=== PATIENT | male | born 1965 | race Caucasian/White ===

== ENCOUNTER 2019-06-24 09:51 | Outpatient (RCR) | payer OTHER, SELFPAY ==
--- NOTE | 2019-06-24 11:27 | OTOPEVAL ---
Thank you for referring this patient to [facility]. Please review, sign, date and return this plan of care LANCE. I agree with and certify that the following plan of care is medically necessary. Referring Physician Date Admitting Provider: Attending Provider: Scooter Long MD Referring Provider: *OT Outpatient Evaluation Start: 06/24/19 09:58 Freq: Status: Active Protocol: Document 06/24/19 09:58 [facility] (Rec: 06/24/19 11:27 [facility] [id number]) Therapy Assessment Status Assessment Status Assessment Status Evaluation Evaluation Information Problem Diagnosis L hand pain, L hand weakness Onset 04/08/20 Cause 4th metacarpal fracture, Dupuytrens Subjective Information Patient reports that he fell Query Text:As Reported By Patient/ on the ice back in March Family and fractured his 4th metacarpal. 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 He also reports pain with L wrist ROM. Patient reports that the fracture has healed but he is struggling to use his left hand for any heavy lifting. He also reports a new diagnosis of Dupuytren's. Heavy lifting is required for his job. Diagnostic Tests X-Rays For This Problem Yes Previous Treatments Previous Treatments For This Problem None Prior Level of Function Activity Level (Last 3 Months) Hand Dominance Right Activity of Daily Living Ability Independent Indoor/Home Mobility Independent Community Mobility Independent Stairs Ability Independent Functional Cognition (Planning, Shopping Independent , Taking Medications) Cooking Yes Cleaning Yes Laundry Yes Shopping Yes Driving Yes Medications Home Meds (Include: OTC, RX, Vitamins, Advil PRN for pain Herbals, Dose, Route,and Frequency) Query Text:Home Med Entries Will No Longer Recall From Past Visits. Home Meds Must Be Re-entered With Each Visit. Home Setting Home Type House Living Situation With Spouse Mobility Assistive Devices (Used Last 3 None Months)
--- NOTE | 2019-07-25 08:08 | OTOPEVAL ---
Thank you for referring this patient to [facility]. Please review, sign, date and return this plan of care LANCE. I agree with and certify that the following plan of care is medically necessary. Referring Physician Date Admitting Provider: Attending Provider: Scooter Long MD Referring Provider: *OT Outpatient Evaluation Start: 06/24/19 09:58 Freq: Status: Active Protocol: Document 07/25/19 07:00 [facility] (Rec: 07/25/19 08:08 [facility] [id number]) Therapy Assessment Status Assessment Status Assessment Status Re-evaluation Pain Assessment Timing of Pain Assessment Timing of Pain Assessment Assessment Pain Scale Pain Scale Used Numeric (1 - 10) Self Report Pain Assessment Left Hand(s) Reported Pain Level 0 Additional Pain Comments 2/10 with movement, 4/10 with movement prior to stretches Pain Score Pain Score 0: Self Report Upper Extremity Range of Motion Wrist Range of Motion Left Wrist Flexion - Active 70 Wrist Extension - Active 65 Finger Range of Motion Left Ring Finger PIP Joint Flexion - Active 90 Ring Finger DIP Joint Flexion - Active 60 Little Finger PIP Joint Flexion - Active 90 Little Finger DIP Joint Flexion - Active 45 Hand Drupal Web Developer/Pinch Strength Assessment Hand Left Drupal Web Developer Strength (lbs) 33 OT Clinical Summary Clinical Summary Protocol: OTEVCODES Clinical Summary Patient is a 53 year old male who presents post 4th metacarpal fracture and Dupuytrens with primary concerns regarding pain and decreased wrapper hand strength. Patient has been seen for 12 OT visists and presents with decreased L wrist and hand pain as well as increased ROM and increased wrapper hand strength since initial evaluation. Feel that patient would continue to benefit from skilled OT services in order to further progress wrapper hand strength as it continues to be significantly weak and impacting his ability to perform job duties. Treatment Frequency and Duration 2x/week for 6 additional visits OT Procedures OT Minutes Total Minutes Of Individual OT This 55 Session (Minutes) Query Text:The Provision Of OT Services By One Licensed OT (Or Licensed ANDREW, Under The
== END 2019-08-14 08:57 | disposition home or self-care (01) ==
LOC: CHSOT 09:51
PROVIDERS: PCP Internal Medicine; Visit Provider Orthopaedic Surgery
DX: S62.305A Unspecified fracture of fourth metacarpal bone, left hand, initial encounter for closed fracture (principal)
CPT/HCPCS: 97014; 97035; 97110; 97140; 97165; G0283

== ENCOUNTER 2020-06-02 11:37 | Outpatient (CLI) | payer OTHER, SELFPAY ==
[2020-06-02 12:30] LABS: SARS-CoV-2 Ag Negative (Negative)
== END 2020-06-02 11:38 | disposition home or self-care (01) ==
LOC: CHSLAB 11:44
PROVIDERS: PCP Internal Medicine; Visit Provider Internal Medicine
DX: Z20.822 Contact with and (suspected) exposure to COVID-19 (principal)
CPT/HCPCS: 87426; C9803

== ENCOUNTER 2021-01-16 21:23 | Observation (INO) | payer OTHER, SELFPAY ==
[2021-01-16] VITALS (12 sets, daily range): BP systolic 136–154; BP diastolic 95–101; PULSE 100–113; RESP 13–25; TEMP 37.4; O2SAT 95–99
--- NOTE | ~2021-01-16 | XR_ITS ---
EXAMINATION: XR chest 1V portable EXAM DATE: 01/18/2021 14:06 INDICATION: COVID infection . TECHNIQUE: Portable AP frontal chest x-ray was obtained. There is no prior study for comparison. FINDINGS: Small amount of ill-defined left basilar airspace disease. The lungs are otherwise clear. T he cardiomediastinal silhouette is prominent but magnified on this AP technique. There is no pneumoth orax suspected. There are no pleural effusions. There are no osseous abnormalities identified. IMPRESSION: Small amount of ill-defined left basilar airspace disease. Could be developing COVID pneu monia. Reviewed, dictated and finalized at location A. IMPRESSION: Small amount of ill-defined left basilar airspace disease. Could be developing COVID pneumonia.
--- NOTE | ~2021-01-16 | CT_ITS ---
EXAMINATION: CT abdomen pelvis w con DATE: 01/16/2021 22:47 INDICATION: Generalized abdominal pain. TECHNIQUE: Computed tomography (CT) of the abdomen and pelvis was performed with 100 mL Omnipaque-350 intravenous contrast. Automated exposure control and iterative reconstruction technique were employe d. The dose-length product was 600.12 mGy-cm. COMPARISON: None FINDINGS: Respiratory motion and minimal atelectasis at the lung bases. A few small calcified nodules in the li ngula consistent with old granulomatous disease. Heart size is normal. No pericardial or pleural effu radha. Liver, gallbladder, spleen, pancreas, bilateral adrenal glands and kidneys are normal. There is inflammatory stranding and trace amount of fluid along the mesentery of the right lower quadrant inc luding along the appendix which measures up to 11 mm in diameter as well as more prominently along th e terminal ileum which also demonstrates some mild wall thickening. There is some gas and fluid scatt ered throughout nondilated small bowel which could indicate an associated ileus. Diffuse bladder wall thickening which could be due to cystitis either acute or chronic or chronic outlet obstruction from the enlarged prostate which measures up to 5.2 x 4.5 cm in maximal transaxial dimensions. No abscess or free intraperitoneal gas. No pathologically enlarged abdominal or pelvic lymphadenopathy. Mild to moderate thoracolumbar spondylosis. IMPRESSION: 1. Inflammatory stranding along the appendix and surrounding the terminal ileum. Differential include s acute appendicitis and terminal ileitis which could be infectious in etiology or related to Crohn's disease. Given the pattern of the inflammatory stranding would favor terminal ileitis. 2. Diffuse bladder wall thickening to at least in part to incomplete distention with differential inc luding cystitis either acute or chronic or response to chronic outlet obstruction from the enlarged p rostate. Reviewed, dictated and finalized at location B. IMPRESSION: 1. Inflammatory stranding along the appendix and surrounding the terminal ileum . Differential includes acute appendicitis and terminal ileitis which could be infectious in etiology or related to Crohn's disease. Given the pattern of the inflammatory stranding would favor terminal ileitis. 2. Diffuse bladder wall thickening to at least in part to incomplete distention with differential including cystitis either acute or chronic or response to ch ronic outlet obstruction from the enlarged prostate.
--- NOTE | 2021-01-16 21:55 | ED.ABDPAIN ---
HPI - Abdominal Pain General Chief Complaint: Abdominal Pain Stated Complaint: COVID AND ABD PAIN Time Seen by Provider: 01/16/21 21:55 History of Present Illness HPI narrative: 55 yo male presents to the ED for abdominal pain. He was diagnosed with COVID-19 2 days. Yesterday he began having diffuse abdominal pain. The pain is made worse by anything that requires him to use his abdominal muscles. The pain is only mild at rest. No nausea, vomiting, diarrhea, dysuria, hematuria. Related Data Allergies Allergy/AdvReac Type Severity Reaction Status Date / Time No Known Allergies Allergy Verified 01/16/21 21:54 Review of Systems Review of Systems: All systems reviewed & are unremarkable except as noted in HPI and below Constitutional: Constitutional: Reports fatigue Cardiovascular: Cardiovascular: Denies chest pain Respiratory: Respiratory: Denies dyspnea Genitourinary: Genitourinary: Denies hematuria, Denies dysuria and Denies urinary frequency Musculoskeletal: Musculoskeletal: Reports myalgias Neurologic: Denies dizziness and Denies weakness PMFSH Past Medical History Medical History (Updated 01/17/21 @ 00:13 by Omar Maddox MD) Degenerative arthritis of right knee Dupuytren's contracture of both hands Surgical History Surgical History H/O knee surgery Metacarpal bone fracture (04/08/19) Social History Social History Smoking status: Former smoker Smoking end date: 05/28/84 Alcohol intake: current Substance use: unknown Gender identity (if verbalized by the patient): Male Spiritual care concerns: No Exam Const: General: healthy appearing, no acute distress and alert Orientation/consciousness: patient oriented x3 HENMT: Head: normal to inspection Neck: Neck: normal visual inspection Resp: Effort & Inspection: normal respiratory effort Auscultation: clear to auscultation bilaterally, no rales, no rhonchi and no wheezes Cardio: Jugular venous distension: no JVD Rate: regular rate Rhythm: regular rhythm Heart sounds: no murmurs GI: Inspection: non-distended GI Palp: Yes Soft to palpation and Yes Tenderness to palpation present (GI) (diffuse ) Skin: General skin exam: normal color Neuro: General: patient oriented x3 and moves all extremities Speech: normal speech Extrem: General: no edema Psych: Appearance: well kempt Affect: normal affect Course Vital Signs Vital signs: Vital Signs Temperature 37.4 C 01/16/21 21:45 Pulse Rate 113 H 01/16/21 21:45 Respiratory Rate 18 01/16/21 21:45 Blood Pressure 136/95 H 01/16/21 21:45 Pulse Oximetry 96 01/16/21 21:45 Temperature 37.4 C 01/16/21 21:45 Pulse Rate 113 H 01/16/21 21:45 Respiratory Rate 18 01/16/21 21:45 Blood Pressure 136/95 H 01/16/21 21:45 Pulse Oximetry 99 01/16/21 22:19 MDM - Abdominal Pain MDM Narrative Medical decision making narrative: Pain seems like is most likely in the abdominal wall. I will get a CT to rule out more serious pathology. CT shows possible ileitis versus appendicitis Dr. Oneal will consult Will admit to dr. Rushing Differential Diagnosis Differential diagnosis: Likely acute appendicitis, diverticulitis, pancreatitis and small bowel obstruction Medical Records Attestation: I reviewed the patient's medical records. Lab Data Attestation: I reviewed the patient's lab results. Result diagrams: 01/16/21 22:22 01/16/21 22:39 Labs: Lab Results 01/16/21 01/16/21 01/16/21 Range/Units 22:22 22:22 22:22 WBC 9.4 (4.5-10.0) K/mm3 RBC 5.32 (4.6-6.20) M/mm3 Hgb 15.8 (14.0-18.0) g/dL Hct 47.2 (42.0-52.0) % MCV 88.7 (80-100) fl MCH 29.7 (26-34) pg MCHC 33.5 (32-36) g/dl RDW 13.4 (11.5-14.5) % Plt Count 202 (150-375) k/mm3 MPV 9.0 (7.4-10.4) fl Immature Gran % (Auto)
[2021-01-16 22:42] LABS: Estimated CRCL calculation 75 ml/min; Estimated Glomerular Filt Rate > 60
[2021-01-16 22:54] LABS: Basophils Percent Auto 0.1 % (0.2-1.2); Hematocrit 47.2 % (42.0-52.0); Hemoglobin 15.8 g/dL (14.0-18.0); Immature Granulocyte Absolute 0.02 K/mm3 (0.00-0.031); Immature Granulocyte Percent A 0.2 % (0-0.5); Lymphocytes Absolute Auto 0.69 K/mm3 (0.9-3.2); Lymphocytes Percent Auto 7.3 % (18.3-44.2); Mean Corpuscular HGB Conc 33.5 g/dl (32-36); Mean Corpuscular Hemoglobin 29.7 pg (26-34); Mean Corpuscular Volume 88.7 fl (80-100); Monocytes Absolute Auto 0.5 K/mm3 (0.1-0.6); Monocytes Percent Auto 5.7 % (2.6-8.5); Neutrophils Absolute Auto 8.2 K/mm3 (1.3-6.7); Neutrophils Percent Auto 86.7 % (45.5-73.1); Platelet Count Result 202 k/mm3 (150-375); Red Blood Count 5.32 M/mm3 (4.6-6.20); Red Cell Distribution Width 13.4 % (11.5-14.5); White Blood Count 9.4 K/mm3 (4.5-10.0)
[2021-01-16 23:18] LABS: Add Urine Microscopic? YES; Appearance Urine Clear (Clear); Bacteria Urine Trace /hpf; Bilirubin Urine Negative (Negative); Blood Urine 2+ (Negative); Color Urine Amber (Yellow); Glucose Urine UA Negative (Negative); Ketones Urine 1+ mg/dL (Negative); Leukocyte Esterase Ur Negative LEU/UL (Negative); Mucus Urine Few /lpf; Nitrate Urine Negative (Negative); Protein Urine 2+ mg/dL (Negative); RBC Urine 0-2 /hpf (0-2); Squamous Epithelial Cell Urine Rare /hpf (Few); WBC Urine 0-3 /hpf
[2021-01-16 23:23] LABS: Alanine Aminotransferase 31 U/L (4-50); Albumin Level 3.9 g/dL (3.5-5.1); Alkaline Phosphatase 64 U/L (38-126); Anion Gap 9 mmol/L (8-16); Aspartate Amino Transferase 42 U/L (17-59); Bilirubin,Total 0.6 mg/dL (0.2-1.3); Blood Urea Nitrogen 23 mg/dL (9-20); Calcium 8.4 mg/dL (8.4-10.2); Carbon Dioxide 23 mmol/L (22-30); Chloride 98 mmol/L (98-107); Estimated CRCL calculation 82 ml/min; Estimated Glomerular Filt Rate > 60; Glucose 98 mg/dL (65-110); Lipase 46 U/L (23-300); Sodium 130 mmol/L (137-145)
[2021-01-17] VITALS (12 sets, daily range): BP systolic 116–151; BP diastolic 63–92; PULSE 91–106; RESP 16–23; TEMP 36.8–37.4; O2SAT 93–100; BMI 24.1
[2021-01-17] MEDS: MORPHINE SULFATE (*CRX) 4 MG/ML INJ IV PUSH (00:31)
--- NOTE | 2021-01-17 02:27 | PC.NURSE ---
This patient, Anish Joseph, was admitted to 3 Med Surg Room 309-01 @02:20. Report taken from Sina in ED. Patient/family oriented to hospital policies and general routines including ID bracelet, bed and alarms, visiting hours, pain management, procedures, bathroom and other care routines, personal items, smoking policy, room service/diet, and visiting hours. Information on how to activate the Rapid Response Team has been discussed. Patient/Family are encouraged to report perceived risks to care and to ask questions if they do not understand what they are told or what they should do.
--- NOTE | 2021-01-17 03:14 | PM.IMHP ---
H&P: HPI History of Present Illness Date/Time: 01/17/21 03:14 Chief Complaint: Abdominal pain Narrative: This is a 55-year-old male with past medical history significant for DJD, Dupuytren's contracture. Patient tested positive for COVID 19 2 days ago he presented to the emergency room due to abdominal pain diffusely localized he rates it at 10/10 intensity it is likely squeeze has not been able to eat has had some chills and subjective fever had roughly 6 small bowel movements prior to coming to the emergency room but no phlegm or mucus or blood. He denies any change in stool character no hematemesis no hematochezia no melena no weight loss although has had roughly a 9 lb weight loss due to not been able to eat in the last few days or so due to abdominal pain. States that his on the lives in his basement had tested positive for COVID and he decided to go get himself tested due to his daughter going to [place] to start college, however he denies any shortness of breath cough sputum production. He has been in his usual state of health up until this he goes to the gym and keeps a very active life. Preliminary workup was significant for area of enterocolitis seen on CT of abdomen and pelvis rest of chemistry and CBC were pretty much unremarkable. Review of Systems Review of Systems: Abdominal pain passing a small amount of stool several times a day Constitutional: Constitutional: Reports chills, Reports fever(s) and Reports malaise Eyes: Eyes: Denies change in vision ENT: Denies dysphagia, Denies nasal congestion, Denies nasal discharge, Denies nasal obstruction and Denies odynophagia Cardiovascular: Cardiovascular: Denies chest pain, Denies claudication, Denies lightheadedness, Denies radiating jaw, neck or arm pain, Denies palpitations and Denies dyspnea on exertion Respiratory: Respiratory: Denies cough and Denies dyspnea Gastrointestinal: Gastrointestinal: Reports abdominal pain (Diffusely localized), Denies melena, Denies hematochezia, Denies change in stool character, Reports GI cramping, Denies diarrhea, Denies nausea and Denies vomiting Genitourinary: Genitourinary: Reports no additional male genitourinary complaints Musculoskeletal: Musculoskeletal: Reports no additional musculoskeletal complaints Integumentary/Breasts: Skin/Breast: Reports system reviewed and no additional complaints, except as docu Neurologic: Reports system reviewed and no additional complaints, except as documented Psychiatric: Psychiatric: Reports no additional psychiatric complaints Endocrine: Endocrine: Reports no additional endocrine complaints Hematologic/Lymphatic: Hematologic/Lymphatic: Reports no additional hematologic/lymphatic complaints Allergic/Immunologic: Allergic/Immunologic: Reports no additional allergic/immunologic complaints [facility] Past Medical History Medical History (Updated 01/17/21 @ 03:42 by Alex Jones MD) Degenerative arthritis of right knee Dupuytren's contracture of both hands Surgical History Surgical History H/O knee surgery Metacarpal bone fracture (04/08/19) Social History Social History Smoking status: Former smoker Smoking end date: 05/28/84 Alcohol intake: never Substance use: never Gender identity (if verbalized by the patient): Male Spiritual care concerns: No Meds Home Medications and Allergies Home Medications Medication Instructions Recorded Confirmed Type No Home Medications 01/17/21 01/17/21 History Allergies Allergy/AdvReac Type Severity Reaction Status Date / Time No Known Allergies Allergy Verified 01/17/21 03:01 Vital Signs Vital Signs - 24 hr 01/16/21 21:45 01/16/21 22:13 01/16/21 22:17 Temperature 99.3 F Pulse Rate 113 H 103 H 100 Respiratory Rate 18 18 17 Blood Pressure 136/95 H Pulse Oximetry 96 98 98 01/16/21 22:19 01/16/21
[2021-01-17] MEDS: SODIUM CHLORIDE 0.9% IV 1,000 ML 125 ML IV CONT ×2 (03:51→10:33)
--- NOTE | 2021-01-17 07:36 | ECG_ITS ---
Measurements Intervals Allons Rate: 98 P: 52 VT: 153 QRS: -32 QRSD: 102 T: 55 QT: 345 QTc: 442 Interpretive Statements SINUS RHYTHM DELAYED PRECORDIAL R/S TRANSITION INFERIOR INFARCT, AGE INDETERMINATE ABNORMAL ECG Electronically Signed On 01-17-2021 10:26:18 CDT by Rich Onofre D.O.
[2021-01-17 08:33] LABS: Anion Gap 9 mmol/L (8-16); Blood Urea Nitrogen 19 mg/dL (9-20); Carbon Dioxide 25 mmol/L (22-30); Chloride 95 mmol/L (98-107); Estimated CRCL calculation 69 ml/min; Estimated Glomerular Filt Rate > 60; Glucose 102 mg/dL (65-110); Potassium 3.8 mmol/L (3.4-5.0); Sodium 129 mmol/L (137-145)
--- NOTE | 2021-01-17 14:44 | PM.IMPN ---
Progress Note: A&P Assessment and Plan (1) Terminal ileitis: Code(s): K50.00 - Crohn's disease of small intestine without complications Status: Acute Assessment and Plan: Ileitis vs appendicitis -Pts pain has improved but not resolved. He is eager to eat -No n/v/d associated with this -Pt was started on zosyn, continue with that. Consider viral source as well -last colonoscopy was 5 years ago and was normal -Will start clear liquids -Await sx recommendations. Appendicitis is on the ddx and would appreciate their recommendations (2) COVID-19: Code(s): U07.1 - COVID-19 Status: Acute Assessment and Plan: Fairly asymptomatic -No VERMA, SOB or significant cough -pt unvaccinated -if he develops symptoms, would recommend CXR -no o2 requirements, no indication for decadron or remdesivir -discussed with the patient that he would benefit from a COVID vaccine 3 months after infection (3) Degenerative arthritis of right knee: Qualifiers: Osteoarthritis type: primary Qualified Code(s): M17.11 - Unilateral primary osteoarthritis, right knee Code(s): M17.11 - Unilateral primary osteoarthritis, right knee Status: Acute Assessment and Plan: Unchanged (4) Enlarged prostate: Code(s): N40.0 - Benign prostatic hyperplasia without lower urinary tract symptoms Status: Acute Assessment and Plan: Noted on CT -No sings of infx on UA -No hx of symptoms of outlet obstruction -never had PSA, I will one tomorrow -Follow up with urology (5) EKG abnormality: Code(s): R94.31 - Abnormal electrocardiogram [ECG] [EKG] Status: Acute Assessment and Plan: Subtle signs of possible old inferior infarct -Pt has no cardiac hx or CP/VERMA -would recommend outpt stress test with pcp. He agreed (6) Hyponatremia: Code(s): E87.1 - Hypo-osmolality and hyponatremia Status: Acute Assessment and Plan: Last Na was 129 -no hx of hyponatremia, no old labs -stop fluids -monitor with daily labs Time Spent With Patient Time with patient: 25 - 35 minutes Subjective Date/time seen: 01/17/21 14:44 Interval history: Pt is a 55-year-old male here for abdominal pain. Patient states he continues to have abdominal pain and cramping that is diffuse but also more significant in the right quadrant. He says even sitting up hurts. He has not had any diarrhea, nausea or vomiting associated with it. He says it feels like a twisting/ tightening/ knoting feeling that he has never had before. His last colonscopy was about 5 years ago and was normal. No hx of prostate issues, problems urinating, frequency, or hesitancy that he has noticed. He has never had a PSA. As for his covid, he has no respiratory issues. His main complaint is his decreased appetite. No cardiac hx and no CP. he is very active and has never had issues with CP. Review of Systems Review of Systems: All systems reviewed & are unremarkable except as noted in HPI and below Exam Narrative: General: Well developed well nourished patient in NAD HEENT: normocephalic Neck: supple Neuro: Alert and oriented x4 CV:RRR. EKG reviewed Resp:CTA Abd: Soft, non distended. Pain to palpation in the RLQ. Positive bowel sounds Extremities: No swelling, erythema, or pain to palpation. Objective Data Vital Signs Vital Signs: Vital Signs - 24 hr 01/16/21 21:45 01/16/21 22:13 01/16/21 22:17 Temperature 99.3 F Pulse Rate 113 H 103 H 100 Respiratory Rate 18 18 17 Blood Pressure 136/95 H Pulse Oximetry 96 98 98 01/16/21 22:19 01/16/21 22:47 01/16/21 22:49 Temperature Pulse Rate 105 H Respiratory Rate 17 Blood Pressure 150/101 H Pulse Oximetry 99 98 99 01/16/21 23:00 01/16/21 23:01 01/16/21 23:21 Temperature Pulse Rate 103 H 105 H 106 H Respiratory Rate 25 H 25 H 13 Blood Pressure 149/96 H Pulse Oximetry 95 97 97 01/16/21 23:30 12/27
--- NOTE | 2021-01-17 16:54 | WPDGICN ---
Assessment and Plan Assessment and plan (1) RLQ abdominal pain: Code(s): R10.31 - Right lower quadrant pain Status: Acute Assessment and Plan: I think that this could be related to COVID (reported cased of GI involvement), he denies any sort of GI issues prior this diagnosis continue with supportive care, abx and pain control monitor daily, surgery also on the case unlikely crohn's probably we can do a colonoscopy as outpatient in 2-3 months (2) Terminal ileitis: Code(s): K50.00 - Crohn's disease of small intestine without complications Status: Acute Assessment and Plan: will check also inflammatory markers, also ferritin (3) Hyponatremia: Code(s): E87.1 - Hypo-osmolality and hyponatremia Status: Acute (4) Enlarged prostate: Code(s): N40.0 - Benign prostatic hyperplasia without lower urinary tract symptoms Status: Acute (5) COVID-19: Code(s): U07.1 - COVID-19 Status: Acute Assessment and Plan: no respiratory symptoms some lack of taste patient did not get vaccine GI Consult Note Consult date/time: 01/17/21 16:54 Reason for consult: rlq pain, ileitis HPI: Anish Joseph is a 55 year old male who is quite healthy and active, not taking meds in regular basis who tested positive for COVID 19 about 3 days ago (his son was positive Sunday). He denies any respiratory symptoms or cough but developed new onset of severe pain in lower abdominal 2 days ago but mostly rlq pain, also decrease appetite and very tender, having difficulty even to get in his truck (he did not get COVID vaccine). He denies any change in stool, no blood. He had screening colonoscopy 5 years ago that was normal. CT scan reviewed, inflammatory stranding along the appendix and surrounding the terminal ileum. Differential includes acute appendicitis and terminal ileitis which could be infectious in etiology. Given the pattern of the inflammatory stranding would favor terminal ileitis. Patient says that prior of being diagnosed with COVID infection he was quite normal and did not have GI issues. Review of Systems Constitutional: Constitutional: Denies chills Eyes: Eyes: Denies blurry vision ENT: Reports Normal hearing present Cardiovascular: Cardiovascular: Denies chest pain Respiratory: Respiratory: Denies dyspnea Gastrointestinal: Gastrointestinal: Reports abdominal pain Genitourinary: Genitourinary: Denies urinary incontinence Musculoskeletal: Musculoskeletal: Denies neck pain Integumentary/Breasts: Skin/Breast: Denies dry skin Neurologic: Denies headache(s) Psychiatric: Psychiatric: Denies behavioral changes [facility] Past Medical History Medical History (Updated 01/17/21 @ 17:00 by Jesus Shoemaker MD) Degenerative arthritis of right knee RLQ abdominal pain Surgical History Surgical History H/O knee surgery Metacarpal bone fracture (04/08/19) Social History Social History Smoking status: Former smoker Smoking end date: 05/28/84 Alcohol intake: never Substance use: never Gender identity (if verbalized by the patient): Male Spiritual care concerns: No Meds Home Medications and Allergies Home Medications Medication Instructions Recorded Confirmed Type No Home Medications 01/17/21 01/17/21 History Allergies Allergy/AdvReac Type Severity Reaction Status Date / Time No Known Allergies Allergy Verified 01/17/21 03:01 Vital Signs Vital Signs - 24 hr 01/16/21 21:45 01/16/21 22:13 01/16/21 22:17 Temperature 99.3 F Pulse Rate 113 H 103 H 100 Respiratory Rate 18 18 17 Blood Pressure 136/95 H Pulse Oximetry 96 98 98 01/16/21 22:19 01/16/21 22:47 01/16/21 22:49 Temperature Pulse Rate 105 H Respiratory Rate 17 Blood Pressure 150/101 H Pulse Oximetry 99 98 99 01/16/21 23:
--- NOTE | 2021-01-17 17:36 | PM.CNGS ---
Assessment and Plan Assessment and plan (1) RLQ abdominal pain: Code(s): R10.31 - Right lower quadrant pain Status: Acute Assessment and Plan: Patient is certainly tender in the right lower quadrant. Symptoms do seem to be improving. He is on Zosyn. The CT pattern is much more suggestive of ileitis then appendicitis. The appendix does not seem to be the focus of the inflammatory process. However, should it be appendicitis, antibiotic therapy with Zosyn can be highly effective. Await Dr. Beck evaluation regarding potential etiologies of ileitis. COVID can cause abdominal pain and this needs to be considered particularly as it started so soon after he was diagnosed with COVID-19. No plans for surgery at this time. Continue IV antibiotics. Okay to start liquids and advance diet as tolerated from my perspective. If condition worsens, would repeat CT scan or possibly consider laparoscopy. Thank you for asking us to see this patient in consultation. Will follow along with you. (2) COVID-19: Code(s): U07.1 - COVID-19 Status: Acute Assessment and Plan: Diagnosed 01/14/2021, could be the cause of his abdominal complaints an abnormal CT. Has had a poor appetite but otherwise none of the usual symptoms. History of Present Illness Consult details Consult date: 01/17/21 Reason for consult: abdominal pain Requesting physician: Omar Maddox MD Narrative: The patient is a 55-year-old man whom I know from previous inguinal hernia repair. He is generally healthy but found out on Sunday this week that his son, who lives with him, tested positive for COVID. His and daughters live in their home as well. They left to stay with friends or relatives. The patient tested Sunday and that test was negative. he was going to go to floor to help his daughter moved to [facility] and got another test on Sunday. This COVID test was positive. He notes that starting Sunday he really had no appetite and thinks he lost a few lb. He has had no respiratory symptoms, no headache no loss of smell. Two days ago, Sunday he started having central abdominal pain. He describes this pain as pretty much the distribution of the 2 rectus muscles up to the hypogastrium and down to the pubis. The pain was fairly mild at rest but worse with activity. It felt like a squeezing. However the pain got much worse Sunday and he came to the emergency room on Sunday. In the emergency room he was afebrile with a normal blood pressure. He was tachycardic to 113. His exam showed diffuse abdominal tenderness with more tenderness on the right lower quadrant. His white blood cell count was 9400. CT scan of the abdomen and pelvis was done and suggested inflammatory process in the area of the terminal ileum but also involving the nearby appendix. He was admitted due to his abdominal pain. He has been started on IV Zosyn. He had morphine for his abdominal pain around midnight last night. He has not had any morphine or other analgesics since then. He still has some low-grade abdominal pain but nothing like he had yesterday. He has had no appetite since Sunday but actually now is starting to feel hungry again. He has had no diarrhea, nausea or vomiting. He is seen now in consultation regarding his abdominal pain and abnormal CT scan. Review of Systems Review of Systems: All systems reviewed & are unremarkable except as noted in HPI and below Constitutional: Constitutional: Denies chills and Denies fever(s) Cardiovascular: Cardiovascular: Denies chest pain, Denies diaphoresis, Denies dyspnea and Denies paroxysmal nocturnal dyspnea Respiratory: Respiratory: Denies chest congestion, Denies cough and Denies dyspnea Integumentary/Breasts: Skin/Breast: Denies lesions and Denies rash PMFSH Past Medical History Medical History Degenerative arthritis of right knee RLQ abdominal
[2021-01-18 04:00] VITALS: BP 135/91; PULSE 91; RESP 20; TEMP 36.7; O2SAT 94
[2021-01-18 08:00] VITALS: BP 137/71; PULSE 105; RESP 18; TEMP 36.7; O2SAT 95
[2021-01-18 08:13] LABS: Erythrocyte Sedimentation Rate 31 mm/hr (0-20)
[2021-01-18 09:04] LABS: Anion Gap 6 mmol/L (8-16); Blood Urea Nitrogen 16 mg/dL (9-20); CRP > 9.0 mg/dL (<1.0); Calcium 7.9 mg/dL (8.4-10.2); Carbon Dioxide 26 mmol/L (22-30); Chloride 101 mmol/L (98-107); Estimated CRCL calculation 91 ml/min; Estimated Glomerular Filt Rate > 60; Glucose 96 mg/dL (65-110); Sodium 133 mmol/L (137-145)
--- NOTE | 2021-01-18 09:27 | PM.IMPN ---
Progress Note: A&P Assessment and Plan (1) RLQ abdominal pain: Code(s): R10.31 - Right lower quadrant pain Status: Acute Assessment and Plan: Patient is certainly tender in the right lower quadrant. Symptoms do seem to be improving. He is on Zosyn. The CT pattern is much more suggestive of ileitis then appendicitis. The appendix does not seem to be the focus of the inflammatory process. However, should it be appendicitis, antibiotic therapy with Zosyn can be highly effective. Await Dr. Beck evaluation regarding potential etiologies of ileitis. COVID can cause abdominal pain and this needs to be considered particularly as it started so soon after he was diagnosed with COVID-19. No plans for surgery at this time. Continue IV antibiotics. Okay to start liquids and advance diet as tolerated from my perspective. If condition worsens, would repeat CT scan or possibly consider laparoscopy. Thank you for asking us to see this patient in consultation. Will follow along with you. (2) COVID-19: Code(s): U07.1 - COVID-19 Status: Acute Assessment and Plan: Diagnosed 01/14/2021, could be the cause of his abdominal complaints an abnormal CT. Has had a poor appetite but otherwise none of the usual symptoms. Subjective Date/time seen: 01/18/21 09:27 Interval history: Pt is a 55-year-old male here for abdominal pain. Patient states he continues to have abdominal pain and cramping that is diffuse but also more significant in the right quadrant. He says even sitting up hurts. He has not had any diarrhea, nausea or vomiting associated with it. He says it feels like a twisting/ tightening/ knoting feeling that he has never had before. His last colonscopy was about 5 years ago and was normal. No hx of prostate issues, problems urinating, frequency, or hesitancy that he has noticed. He has never had a PSA. As for his covid, he has no respiratory issues. His main complaint is his decreased appetite. No cardiac hx and no CP. he is very active and has never had issues with CP. Review of Systems Review of Systems: All systems reviewed & are unremarkable except as noted in HPI and below Constitutional: Constitutional: Denies chills, Reports fatigue, Denies fever(s), Denies headache(s), Reports malaise and Denies weakness Eyes: Eyes: Denies blurry vision and Denies change in vision ENT: Reports Normal hearing present, Denies dysphagia, Denies dizziness, Denies headache(s), Denies nasal congestion, Denies nasal discharge, Denies nasal obstruction, Denies neck pain and Denies odynophagia Cardiovascular: Cardiovascular: Denies chest pain, Denies diaphoresis, Denies claudication, Denies lightheadedness, Denies radiating jaw, neck or arm pain, Denies palpitations, Denies dyspnea, Denies dyspnea on exertion and Denies paroxysmal nocturnal dyspnea Respiratory: Respiratory: Denies chest congestion, Denies cough, Denies dyspnea and Denies dyspnea on exertion Gastrointestinal: Gastrointestinal: Reports abdominal pain, Denies melena, Denies hematochezia, Denies change in stool character, Reports GI cramping, Denies dysphagia, Denies diarrhea, Denies nausea, Denies odynophagia and Denies vomiting Genitourinary: Genitourinary: Reports no additional male genitourinary complaints, Denies hematuria, Denies dysuria, Denies urinary frequency and Denies urinary incontinence Musculoskeletal: Musculoskeletal: Reports no additional musculoskeletal complaints, Reports myalgias and Denies neck pain Integumentary/Breasts: Skin/Breast: Reports system reviewed and no additional complaints, except as docu, Denies dry skin, Denies lesions and Denies rash Neurologic: Reports system reviewed and no additional complaints, except as documented, Reports Normal hearing present, Denies behavioral changes, Denies dizziness, Denies headache(s), Denies Sensory deficit (Neuro) and Denies weakness Psychiatric: Psychiatric: Reports no additional psychiat
[2021-01-18 09:56] LABS: Hematocrit 43.3 % (42.0-52.0); Hemoglobin 14.6 g/dL (14.0-18.0); Immature Granulocyte Absolute 0.02 K/mm3 (0.00-0.031); Immature Granulocyte Percent A 0.3 % (0-0.5); Lymphocytes Absolute Auto 0.52 K/mm3 (0.9-3.2); Lymphocytes Percent Auto 8.8 % (18.3-44.2); Mean Corpuscular HGB Conc 33.7 g/dl (32-36); Mean Corpuscular Hemoglobin 30.4 pg (26-34); Mean Platelet Volume 9.4 fl (7.4-10.4); Monocytes Absolute Auto 0.5 K/mm3 (0.1-0.6); Monocytes Percent Auto 8.3 % (2.6-8.5); Neutrophils Absolute Auto 4.9 K/mm3 (1.3-6.7); Neutrophils Percent Auto 82.6 % (45.5-73.1); Platelet Count Result 210 k/mm3 (150-375); Red Blood Count 4.81 M/mm3 (4.6-6.20); Red Cell Distribution Width 13.4 % (11.5-14.5); White Blood Count 5.9 K/mm3 (4.5-10.0)
[2021-01-18 12:00] VITALS: BP 144/85; PULSE 95; RESP 18; TEMP 36.3; O2SAT 98
--- NOTE | 2021-01-18 12:53 | PM.PNGS ---
Progress Note: A&P Assessment and Plan (1) RLQ abdominal pain: Code(s): R10.31 - Right lower quadrant pain Status: Acute Assessment and Plan: Continues to improve on Zosyn. Agree with advancing diet. Possibly home tomorrow on oral antibiotics such as Augmentin. Still feel this is more likely ileitis than appendicitis. (2) COVID-19: Code(s): U07.1 - COVID-19 Status: Acute Assessment and Plan: Could be the cause of abdominal pain. No respiratory symptoms, no fever, no headache, appetite is better. Subjective Subjective Date/Time Seen: 01/18/21 12:53 Patient reports: pain is less (Still having pain but less than yesterday), tolerating liquids well (Appetite has returned and 8 well this morning) and afebrile Review of Systems Review of Systems: All systems reviewed & are unremarkable except as noted in HPI and below Constitutional: Constitutional: Denies headache(s) Cardiovascular: Cardiovascular: Denies chest pain and Denies dyspnea Respiratory: Respiratory: Denies cough and Denies dyspnea Gastrointestinal: Gastrointestinal: Reports as per HPI, Reports abdominal pain, Denies GI cramping, Denies diarrhea, Denies nausea and Denies vomiting Neurologic: Denies confusion and Denies headache(s) Exam Const: General: comfortable and no acute distress; No confusion Orientation/consciousness: patient oriented x3 and No confusion GI: Inspection: normal to inspection and non-distended GI Palp: Yes Soft to palpation, Yes Tenderness to palpation present (GI) (Mostly right lower quadrant, left lower quadrant as well, less than yesterd), No Guarding due to palpation present (GI) and No Rebound tenderness present Auscultation: Hypoactive bowel sounds present Neuro: General: patient oriented x3, no focal motor deficits and No confusion Extrem: General: no calf tenderness and no edema Psych: Affect: normal affect Insight: Good insight present (Psych) Judgement: Good judgement present (Psych) Objective Data Vital Signs Vital Signs: Vital Signs - 24 hr 01/17/21 16:00 01/17/21 20:00 01/17/21 23:58 Temperature 37.0 C 36.9 C 36.8 C Pulse Rate 94 96 91 Respiratory Rate 20 20 20 Blood Pressure 151/92 H 134/91 H 116/63 Pulse Oximetry 96 95 96 01/18/21 04:00 01/18/21 08:00 Temperature 36.7 C 36.7 C Pulse Rate 91 105 H Respiratory Rate 20 18 Blood Pressure 135/91 H 137/71 Pulse Oximetry 94 95 Intake/Output Intake/Output: Intake & Output 01/15/21 01/16/21 01/17/21 01/18/21 23:59 23:59 23:59 23:59 Intake Total 2190 1140 Output Total 500 Balance 2190 640 Meds/Results Medications: Active Medications Generic Name Dose Route Start Last Admin Trade Name Freq PRN Reason Stop Dose Admin Piperacillin/Tazobactam/Dextrose 3.375 gm in 50 mls @ 100 mls/hr 01/17/21 06:00 01/18/21 12:33 Zosyn 3.375 Gm/D5w 50ml Pm IVPB 100 mls/hr Q6H JOANNA Administration Morphine Sulfate 3 mg 01/17/21 07:35 Morphine Sulfate (*Crx) 4 Mg/Ml Inj IV PUSH Q2H PRN Pain Rated 7-10 Radiology Results: ITS Impressions Abdomen/Pelvis CT 01/17/21 08:08 IMPRESSION: 1. Inflammatory stranding along the appendix and surrounding the terminal ileum. Differential includes acute appendicitis and terminal ileitis which could be infectious in etiology or related to Crohn's disease. Given the pattern of the inflammatory stranding would favor terminal ileitis. 2. Diffuse bladder wall thickening to at least in part to incomplete distention with differential including cystitis either acute or chronic or response to chronic outlet obstruction from the enlarged prostate. Labs Labs: Laboratory Results - last 24 hr 01/18/21 01/18/21 01/18/21 06:00 06:02 06:02 WBC 5.9 RBC 4.81 Hgb 14.6 Hct 43.3 MCV 90.0 MCH 30.4 MCHC 33.7 RDW 13.4 Plt Count 210 MPV 9.4 Immature Gran % (Auto) 0.3 Neut % (Auto) 82.6 H Lymph % (Auto) 8.8 L [place] %
--- NOTE | 2021-01-18 14:41 | PM.DS ---
DS: Admitting Diagnosis Admitting Diagnosis Ileitis, COVID-19, Hyponatremia DS: Discharge Diagnosis Discharge Diagnosis (1) RLQ abdominal pain: Code(s): R10.31 - Right lower quadrant pain Status: Acute Assessment and Plan: Improved on Zosyn. discharged on oral Cipro and Flagyl. Tolerated advancing diet today no abdominal pain, no N/V today. D/C to home today on oral antibiotics More likely ileitis than appendicitis. (2) COVID-19: Code(s): U07.1 - COVID-19 Status: Acute Assessment and Plan: Could be the cause of abdominal pain. No respiratory symptoms - but CXR shows that he may be developing COVID pneumonia. Instructed patient to F/U and if he worsens to return to the ED. No fevers, no headaches, appetite is better, no cough, no SOB, no dyspnea. patient wanting to go home right away and is aware of risks with COVID DS: Summary Hospital Course Hospital Course: Patient improved with zosyn, GI and Gen. Surgery consulted, diet advanced from clear liquids, pain resolved, N/V resolved, tolerated orals today, currently stable COVID infection with no cough and no SOB, discharged on oral Cipro and Flagyl and expected to F/u with specialists and PCP Time Spent with Patient Time attestation: Total time spent providing and/or coordinating discharge services:60 min Exam Narrative: General: Well developed well nourished patient in NAD HEENT: normocephalic Neck: supple Neuro: Alert and oriented x4 CV:RRR. EKG reviewed Resp:CTA Abd: Soft, non distended. NO Pain to palpation, no distension. Positive bowel sounds throughout. Extremities: No swelling, erythema, or pain to palpation. Const: General: healthy appearing, comfortable, no acute distress, well developed, alert, awake, ill appearing and other (Well-appearing); No confusion Nutritional Appearance: average body habitus Orientation/consciousness: patient oriented x3 and No confusion HENMT: Head: normal to inspection, normocephalic and atraumatic Ears: hearing grossly normal bilaterally and external ears normal General nose exam: Normal external nose present, Normal nares present, no nasal discharge noted and no epistaxis Face and sinus: normal facial exam, face symmetric, no tenderness and dry mucous membranes Mouth: Yes Normal oral and palatal mucosa present and No tongue abnormal Eyes: General: appearance normal, both eyes and all related structures Alignment and Position: alignment normal Conjunctivae: conjunctivae normal Sclera: sclerae normal Pupils: Equal, round and reactive pupils present EOM: EOMs intact bilaterally Neck: Neck: normal visual inspection, full ROM, no lymphadenopathy, supple, nontender, no JVD and No submandibular swelling Thyroid: thyroid normal and nontender Lymphatic: no lymphadenopathy noted and lymphadenopathy not noted Chest: Chest palpation & inspection: mass and no tenderness Resp: Effort & Inspection: normal respiratory effort, able to speak in complete sentences, no audible wheezes, no cough and no pursed lip breathing Auscultation: clear to auscultation bilaterally, no crackles, no rales, no rhonchi and no wheezes Cardio: Jugular venous distension: no JVD Rate: regular rate Rhythm: regular rhythm Heart sounds: S1 normal heart sound present, S2 normal heart sound present, no gallops, no murmurs and no rubs GI: Inspection: normal to inspection, non-distended and scaphoid GI Palp: No abdominal tenderness and Yes Soft to palpation Auscultation: normal bowel sounds Rectal Exam: deferred : General: Yes no CVA tenderness and Yes deferred Back/Spine/Pelvis: Back: no CVA tenderness, No mass, No ecchymosis and No back tenderness Skin: General skin exam: normal color, no induration and other (no palpable nodules) Lesions: no lesions Rashes: no rashes Wounds: no wounds and no wounds noted Nails: no clubbing and no pitting Neuro: General: patient oriented x3, gait normal, moves all extremities, n
[2021-01-20 18:39] LABS: PSA, Free 0.11 ng/mL; PSA, Total 0.9 ng/mL (<=4.0)
--- NOTE | 2021-01-25 11:03 | PC.NURSE ---
Total PSA - 0.9 Free PSA- 0.11 SEB Aden aware.
== END 2021-01-18 15:30 | disposition home or self-care (01) ==
LOC: ANHED 01-17 00:13 → ANH3MEDSUR 01-17 01:36
PROVIDERS: Emergency Medicine; Internal Medicine Gastroenterology; Physician Assistant; Admitting Provider Internal Medicine; Emergency Provider Emergency Medicine; PCP Internal Medicine; Visit Provider Nurse Practitioner
DX: U07.1 COVID-19 (principal); R10.31 Right lower quadrant pain; E87.1 Hypo-osmolality and hyponatremia; K50.00 Crohn's disease of small intestine without complications; M17.11 Unilateral primary osteoarthritis, right knee; N40.0 Benign prostatic hyperplasia without lower urinary tract symptoms; R94.31 Abnormal electrocardiogram [ECG] [EKG]; Z87.891 Personal history of nicotine dependence
CPT/HCPCS: 36415; 71045; 74177; 80048; 80053; 81001; 82728; 83690; 84153; 84154; 85025; 85652; 86140; 93005; 96361; 96365; 96366; 96375; 96376; 99285; G0378; J2270; J2543; J7030; Q9967

== ENCOUNTER 2021-01-28 14:13 | Outpatient (CLI) | payer OTHER, SELFPAY ==
--- NOTE | ~2021-01-28 | CT_ITS ---
EXAMINATION: CT abdomen pelvis w con DATE: 01/28/2021 15:09 INDICATION: Abdominal pain. TECHNIQUE: Computed tomography (CT) of the abdomen and pelvis was performed with 100 mL Omnipaque 350 intravenous contrast. Automated exposure control and iterative reconstruction technique were employe d. The dose-length product was 409.29 mGy-cm. COMPARISON: CT abdomen and pelvis 01/16/2021 FINDINGS: The visualized portions of the lung bases demonstrate peripheral airspace opacities in the lower lobes, consistent with pneumonia. There is a pneumatocele in right lower lobe. No pleural effus ion. The heart size is normal. No pericardial effusion. The liver, gallbladder, spleen, pancreas, adr enal glands, and kidneys are normal. There are no dilated loops of bowel. There is wall thickening of the cecum and proximal ascending colon. There is a 7.4 x 4.5 x 7.7 cm rim-enhancing mass abutting th e terminal ileum and ileocolic junction with central fat attenuation. The appendix measures 9 mm in d iameter. There is fat stranding in the right lower quadrant. There are no pathologically enlarged lym ph nodes. There is trace ascites in right paracolic gutter. There is severe lower lumbar spondylosis. IMPRESSION: 1. Worsened inflammation adjacent to the terminal ileum with new mass that is likely a combination of phlegmon and abscess. It is not clear how much of this mass is drainable fluid. The etiology may be diverticulitis of the terminal ileum or less likely Crohn disease. 2. Appendiceal diameter of 9 mm without change. 3. Worsened peripheral airspace opacities in the lower lobes, consistent with pneumonia. Reviewed, dictated and finalized at location A. IMPRESSION: 1. Worsened inflammation adjacent to the terminal ileum with new mass that is l ikely a combination of phlegmon and abscess. It is not clear how much of this m ass is drainable fluid. The etiology may be diverticulitis of the terminal ileu m or less likely Crohn disease. 2. Appendiceal diameter of 9 mm without change. 3. Worsened peripheral airspace opacities in the lower lobes, consistent with p neumonia.
[2021-01-28 14:26] LABS: Basophils Absolute Auto 0.02 K/mm3 (0.00-0.10); Basophils Percent Auto 0.2 % (0.0-1.0); Eosinophils Absolute Auto 0.08 K/mm3 (0.02-0.50); Eosinophils Percent Auto 0.7 % (1.0-6.0); Hematocrit 41.5 % (40.0-54.0); Hemoglobin 13.9 g/dL (14.0-18.0); Immature Granulocyte Absolute 0.09 K/mm3 (0.00-0.00); Immature Granulocyte Percent A 0.8 % (0.0-0.0); Lymphocytes Absolute Auto 0.78 K/mm3 (1.10-4.50); Lymphocytes Percent Auto 7.2 % (18.0-42.0); Mean Corpuscular HGB Conc 33.5 g/dL (32.0-36.0); Mean Corpuscular Hemoglobin 29.8 pg (27.0-31.0); Mean Corpuscular Volume 89.1 fL (78.0-102.0); Mean Platelet Volume 8.1 fl (8.7-11.0); Monocytes Absolute Auto 1.01 K/mm3 (0.10-0.90); Monocytes Percent Auto 9.4 % (2.0-11.0); Neutrophils Absolute Auto 8.8 K/mm3 (1.7-7.2); Neutrophils Percent Auto 81.7 % (50.0-70.0); Platelet Count Result 613 K/mm3 (150-420); Red Blood Count 4.66 M/mm3 (4.70-6.10); Red Cell Distribution Width 13.1 % (11.6-14.4); White Blood Count 10.8 K/mm3 (4.8-10.8)
[2021-01-28 14:40] LABS: Add Urine Microscopic? YES; Appearance Urine Clear (Clear); Bilirubin Urine Negative (Negative); Blood Urine 1+ (Negative); Color Urine Yellow (Yellow); Glucose Urine UA Negative (Negative); Ketones Urine Negative (Negative); Leukocyte Esterase Ur Negative (Negative); Nitrate Urine Negative (Negative); Protein Urine Trace (Negative); Specific Grav Ur >= 1.030 (1.010-1.020); Urobilinogen Urine 0.2 mg/dL (0.2-1.0); pH Urine 5.5 (5.0-8.0)
[2021-01-28 14:44] LABS: INR 1.1; Partial Thromboplastin Time 29.6 SEC (23.90-30.70); Prothrombin Time 11.6 Seconds (9.50-12.10)
[2021-01-28 15:12] LABS: Alanine Aminotransferase 28 U/L (16-63); Albumin Level 2.8 g/dL (3.4-5.0); Alkaline Phosphatase 93 U/L (46-116); Amylase 40 U/L (25-115); Anion Gap 9 mmol/L (8-16); Aspartate Amino Transferase 28 U/L (15-37); Bilirubin,Total 0.4 mg/dL (0.00-1.00); Blood Urea Nitrogen 18 mg/dL (7-18); CRP 10.1 mg/dL (0.0-0.9); Calcium 8.8 mg/dL (8.5-10.1); Carbon Dioxide 30 mmol/L (21-32); Chloride 103 mmol/L (98-108); Estimated Glomerular Filt Rate > 60; Ferritin 486 ng/mL (26-388); Glucose 91 mg/dL (70-99); Lipase 100 U/L (73-393); Osmolality Calculated 295 mOsm/kg (285-295); Potassium 4.3 mmol/L (3.5-5.1); Sodium 142 mmol/L (136-145); Total Protein 7.3 g/dL (6.4-8.2)
[2021-01-28 15:13] LABS: Bacteria Urine Trace /hpf; Mucus Urine Moderate /lpf; RBC Urine 0-2 /hpf (0-2); Squamous Epithelial Cell Urine Rare /hpf (Few); WBC Urine 0-3 /hpf (0-3)
[2021-01-28 15:53] LABS: Erythrocyte Sedimentation Rate 44 mm/hr (0-20)
== END 2021-01-28 14:14 | disposition home or self-care (01) ==
LOC: CHSLAB 14:15
PROVIDERS: PCP Internal Medicine; Visit Provider Nurse Practitioner Family
DX: R10.9 Unspecified abdominal pain (principal); R19.5 Other fecal abnormalities; R31.9 Hematuria, unspecified
CPT/HCPCS: 36415; 74177; 80053; 81001; 82150; 82728; 83690; 85025; 85610; 85652; 85730; 86140; 87086; 88112; Q9967

== ENCOUNTER 2021-02-01 08:03 | Outpatient (CLI) | payer OTHER, SELFPAY ==
[2021-02-01 08:15] LABS: Occult Blood Negative (Negative)
[2021-02-01 08:15] LABS: Occult Blood Negative (Negative)
[2021-02-01 08:15] LABS: Occult Blood Negative (Negative)
[2021-02-03 23:16] LABS: ANCA Screen Negative (Negative); Myeloperoxidase Ab <1.0 AI (<1.0); Proteinase-3 Ab <1.0 AI (<1.0); S cerevisiae Ab (IgA) 4.1 U (<=20.0); S cerevisiae Ab (IgG) 6.5 U (<=20.0)
== END 2021-02-01 08:04 | disposition home or self-care (01) ==
PROVIDERS: PCP Internal Medicine; Visit Provider Nurse Practitioner Family
DX: R19.7 Diarrhea, unspecified (principal)
CPT/HCPCS: 36415; 82272; 86021; 86671

== ENCOUNTER 2021-02-02 07:42 | Outpatient (CLI) | payer OTHER, SELFPAY ==
--- NOTE | ~2021-02-02 | XR_ITS ---
EXAMINATION: XR chest 2V DATE: 02/02/2021 15:03 INDICATION: Pneumonia and shortness of breath TECHNIQUE: PA and lateral views of the chest are obtained. COMPARISON: 01/18/2021 FINDINGS: There are patchy bilateral airspace opacities. There is no pleural effusion or pneumothorax . The cardiomediastinal silhouette is normal. There is mild thoracic spondylosis. IMPRESSION: 1. Patchy bilateral airspace opacities, consistent with atelectasis versus pneumonia. Reviewed, dictated and finalized at location B. IMPRESSION: 1. Patchy bilateral airspace opacities, consistent with atelectasis versus pneu monia.
[2021-02-09 00:09] LABS: Calprotectin, Stool 816 mcg/g
== END 2021-02-02 07:43 | disposition home or self-care (01) ==
PROVIDERS: PCP Internal Medicine; Visit Provider Internal Medicine
DX: J18.9 Pneumonia, unspecified organism (principal); R19.7 Diarrhea, unspecified
CPT/HCPCS: 71046; 83993

== ENCOUNTER 2021-11-08 07:16 | Outpatient (CLI) | payer BC, SELFPAY ==
--- NOTE | ~2021-11-08 | CT_ITS ---
EXAMINATION: CT abdomen pelvis wo con DATE: 11/08/2021 08:04 INDICATION: Generalized abdominal pain, intermittent diarrhea. TECHNIQUE: Computed tomography (CT) of the abdomen and pelvis was performed without intravenous contr ast. Automated exposure control and iterative reconstruction technique were employed. Exam dose: 550 .20 mGy-cm total exam DLP. COMPARISON: 01/28/2021 CT abdomen pelvis FINDINGS: The lung bases are clear of infiltrate or consolidation. Mild cardiomegaly. No pericardial or pleural effusion. Small sliding hiatal hernia. The liver, gallbladder, bile ducts, pancreas, pancreatic duct and spleen are unremarkable. Normal morphology of the adrenal glands. No renal mass lesion or urinary tract calculus or hydroureteronephrosis. There is prostate enlargemen t and some prominent prostate calcifications. Urinary bladder is unremarkable. Normal caliber of the abdominal aorta. No intraperitoneal or retroperitoneal or pelvic mass lesion or adenopathy or ascites. Scattered diverticula of left and right colon; no CT evidence of diverticulitis. There is a prominent amount of fecal material in the left colon. No bowel obstruction, bowel wall thickening, pneumatosis or intraperitoneal free air is detected. Normal appendix. Very small fat-containing umbilical hernia. Moderately severe degenerative disc disease at L4-5. Severe degenerative disc disease at L5-S1. No suspicious osteolytic or osteoblastic lesions are noted. IMPRESSION: Mild cardiomegaly Small sliding hiatal hernia Mild left and right colon diverticulosis; no CT evidence of diverticulitis Normal appendix Prostate enlargement and calcifications Reviewed, dictated and finalized at [facility]. Reviewed, dictated and finalized at location A.
--- NOTE | ~2021-11-08 | US_ITS ---
EXAMINATION: US thyroid DATE: 11/08/2021 07:41 INDICATION: Hypothyroidism. TECHNIQUE: Multiple ultrasound images of the thyroid were obtained. COMPARISON: None. FINDINGS: The right thyroid lobe measures 3.7 x 1.8 x 1.5 cm. The left thyroid lobe measures 3.9 x 1.6 x 1.4 c m. There is normal echotexture and echogenicity throughout the thyroid gland. No discrete nodules id entified. Normal vascular flow is present. IMPRESSION: 1. Normal thyroid. Reviewed, dictated and finalized at location B. IMPRESSION: 1. Normal thyroid.
== END 2021-11-08 07:17 | disposition home or self-care (01) ==
LOC: CHSIMG 07:19
PROVIDERS: PCP Internal Medicine; Visit Provider Internal Medicine
DX: R10.9 Unspecified abdominal pain (principal); Z87.19 Personal history of other diseases of the digestive system; E03.9 Hypothyroidism, unspecified
CPT/HCPCS: 74176; 76536

== ENCOUNTER 2021-12-19 14:49 | Outpatient (CLI) | payer BC, SELFPAY ==
--- NOTE | 2021-12-19 01:00 | ECHO_ITS ---
Patient Info Name: Anish Joseph Age: 56 years : 1965 Gender: Male Ht: 73 in Wt: 189 lbs BSA: 2.11 m2 HR: 93 bpm BP: 126 / 101 mmHg Heart Rhythm: Sinus Rhythm Technical Quality: Fair Exam Date: 12/19/2021 2:43 PM Exam Location: [facility], [place] Patient Status: Outpatient Admit Date: 12/19/2021 Staff Ordering Physician: Kaila Manzo MD Boat Rental Clerk: Mouna Barker RDCS Attending Provider: Kaila Manzo MD Referring Physician: Jovany BROWN; Exam Type: CA echo doppler color flow Study Info Indications - Cardiomegaly Complete two-dimensional, color flow and Doppler transthoracic echocardiogram is performed. Summary 1. Complete two-dimensional, color flow and Doppler transthoracic echocardiogram is performed. 2. Left ventricular chamber dimension is moderately enlarged. 3. Left ventricular systolic function is moderately reduced, estimated at 35-40%. 4. The left ventricular diastolic function is grade III diastolic dysfunction. 5. E/e' 14 is mildly elevated. 6. Left atrial chamber dimension is mildly enlarged. 7. There is mild mitral valve regurgitation. 8. There is trace tricuspid valve regurgitation. 9. No pulmonary hypertension, estimated pulmonary arterial systolic pressure is 22 mmHg. Left Ventricle E/e' 14 is mildly elevated. Left ventricular chamber dimension is moderately enlarged. Left ventricular systolic function is moderately reduced, estimated at 35-40%. The left ventricular diastolic function is grade III diastolic dysfunction. Right Ventricle Right ventricular systolic function is normal and with normal TAPSE 2.2 cm. Right ventricular chamber dimension is normal. Left Atria Left atrial chamber dimension is mildly enlarged. Right Atria Right atrial chamber dimension is normal. Aortic Valve The aortic valve is trileaflet. There is no aortic valve stenosis. There is no aortic valve regurgitation. Pulmonic Valve There is no pulmonic regurgitation. Mitral Valve There is no mitral valve stenosis. There is mild mitral valve regurgitation. Tricuspid Valve There is trace tricuspid valve regurgitation. No pulmonary hypertension, estimated pulmonary arterial systolic pressure is 22 mmHg. Pericardium/Pleural There is no pericardial effusion. Inferior Vena Cava Normal inferior vena cava with >50% collapse upon inspiration consistent with normal right atrial pressure, 5 mmHg. Aorta The aortic root size at the sinus of Valsalva is normal. Left Ventricular Outflow Tract Name Value Normal LVOT 2D LVOT Diameter 2.5 cm LVOT Doppler LVOT Peak Velocity 76 cm/s LVOT Peak Gradient 2 mmHg LVOT Mean Gradient 1 mmHg LVOT VTI 13 cm LVOT VTI/AV VTI Ratio 0.6 LVOT Stroke Volume 59 ml Pulmonic Valve Name Value Normal
== END 2021-12-19 14:50 | disposition home or self-care (01) ==
LOC: CHSIMG 14:51
PROVIDERS: PCP Internal Medicine; Visit Provider Internal Medicine
DX: I51.7 Cardiomegaly (principal)
CPT/HCPCS: 93306

== ENCOUNTER 2021-12-26 09:17 | Outpatient (CLI) | payer BC, SELFPAY ==
--- NOTE | 2021-12-26 09:30 | EST_ITS ---
Patient Info Name: Anish Joseph Age: 56 years : 1965 Gender: Male Ht: 73 in Wt: 189 lbs BSA: 2.11 m2 HR: 93 bpm BP: 112 / 83 mmHg Heart Rhythm: Sinus Rhythm Technical Quality: Good Exam Date: 12/26/2021 9:38 AM Exam Location: [facility] Patient Status: Outpatient Admit Date: 12/26/2021 Staff Ordering Physician: Kaila Manzo MD Attending Provider: Kaila Manzo MD Exercise Technologist: Shayna Whitney CRT Exercise Physician: Karlene Rodriguez CEP Exam Type: CA stress test treadmill Study Info Indications cardiomegaly - A treadmill exercise stress test was performed. History/Risk Factors Dyslipidemia: Yes History/Risk Factors dyslipidemia. Summary 1. 1. Negative Henry exercise stress test for ischemic ST changes by ECG criteria. 2. 2. Good functional capacity, achieving 12 METs of workload. 3. 3. Appropriate HR response to exercise. 4. 4. Appropriate HR recovery at 1 minute post exercise. 5. 5. No imaging with stress testing. Protocol: Henry Stress ECG Details Stage: REST Duration (min): 0 min : 42 sec Speed (mph): 0.0 Grade (%): 0 HR (bpm): 92 SBP (mmHg): 112 DBP (mmHg): 83 METS: --- Stage: REST Duration (min): 2 min : 18 sec Speed (mph): 0.0 Grade (%): 0 HR (bpm): 104 SBP (mmHg): 112 DBP (mmHg): 83 METS: --- Stage: REST Duration (min): 3 min : 5 sec Speed (mph): 0.0 Grade (%): 0 HR (bpm): 110 SBP (mmHg): 112 DBP (mmHg): 83 METS: --- Stage: STAGE 1 Duration (min): 1 min : 0 sec Speed (mph): 1.7 Grade (%): 10 HR (bpm): 108 SBP (mmHg): 112 DBP (mmHg): 83 METS: --- Stage: STAGE 1 Duration (min): 2 min : 0 sec Speed (mph): 1.7 Grade (%): 10 HR (bpm): 117 SBP (mmHg): 112 DBP (mmHg): 83 METS: --- Stage: STAGE 1 Duration (min): 3 min : 0 sec Speed (mph): 1.7 Grade (%): 10 HR (bpm): 114 SBP (mmHg): 127 DBP (mmHg): 86 METS: --- Stage: STAGE 2 Duration (min): 1 min : 0 sec Speed (mph): 2.5 Grade (%): 12 HR (bpm): 122 SBP (mmHg): 127 DBP (mmHg): 86 METS: --- Stage: STAGE 2 Duration (min): 2 min : 0 sec Speed (mph): 2.5 Grade (%): 12 HR (bpm): 127 SBP (mmHg): 127 DBP (mmHg): 86 METS: --- Stage: STAGE 2 Duration (min): 3 min : 0 sec Speed (mph): 2.5 Grade (%): 12 HR (bpm): 131 SBP (mmHg): 154 DBP (mmHg): 96 METS: --- Stage: STAGE 3 Duration (min): 1 min : 0 sec Speed (mph): 3.4 Grade (%): 14 HR (bpm): 139 SBP (mmHg): 154 DBP (mmHg): 96 METS: --- Stage: STAGE 3 Duration (min): 2 min : 0 sec Speed (mph): 3.4 Grade (%): 14 HR (bpm): 147 SBP (mmHg): 154 DBP (mmHg): 96 METS: --- Stage: STAGE 3 Duration (min): 3 min : 0 sec Speed (mph): 3.4 Grade (%): 14 HR (bpm): 146 SBP (mmHg):
== END 2021-12-26 09:18 | disposition home or self-care (01) ==
LOC: CHSCARD 09:19
PROVIDERS: PCP Internal Medicine; Visit Provider Internal Medicine
DX: I51.7 Cardiomegaly (principal)
CPT/HCPCS: 93017

== ENCOUNTER 2022-02-01 01:11 | Day surgery (SDC) | payer BC, SELFPAY ==
[2022-01-31 13:55] VITALS: BMI 24.7
[2022-02-01] VITALS (7 sets, daily range): BP systolic 130–153; BP diastolic 72–107; PULSE 62–81; RESP 12–18; TEMP 36.3; O2SAT 95–100; BMI 25.4
[2022-02-01 08:59] LABS: Basophils Percent Auto 0.5 % (0.2-1.2); Eosinophils Absolute Auto 0.1 K/mm3 (0-0.3); Eosinophils Percent Auto 1.9 % (0-4.4); Hematocrit 45.2 % (42.0-52.0); Hemoglobin 15.3 g/dL (14.0-18.0); Immature Granulocyte Absolute 0.01 K/mm3 (0.00-0.031); Immature Granulocyte Percent A 0.2 % (0-0.5); Lymphocytes Absolute Auto 0.85 K/mm3 (0.9-3.2); Lymphocytes Percent Auto 13.8 % (18.3-44.2); Mean Corpuscular HGB Conc 33.8 g/dl (32-36); Mean Corpuscular Hemoglobin 30.8 pg (26-34); Mean Corpuscular Volume 91.1 fl (80-100); Mean Platelet Volume 8.7 fl (7.4-10.4); Monocytes Absolute Auto 0.5 K/mm3 (0.1-0.6); Monocytes Percent Auto 7.3 % (2.6-8.5); Neutrophils Absolute Auto 4.7 K/mm3 (1.3-6.7); Neutrophils Percent Auto 76.3 % (45.5-73.1); Platelet Count Result 282 k/mm3 (150-375); Red Blood Count 4.96 M/mm3 (4.6-6.20); Red Cell Distribution Width 13.6 % (11.5-14.5); White Blood Count 6.2 K/mm3 (4.5-10.0)
[2022-02-01 09:09] LABS: Anion Gap 10 mmol/L (8-16); Blood Urea Nitrogen 17 mg/dL (9-20); Calcium 8.6 mg/dL (8.4-10.2); Carbon Dioxide 23 mmol/L (22-30); Chloride 106 mmol/L (98-107); Estimated CRCL calculation 75 ml/min; Estimated Glomerular Filt Rate > 60; Glucose 105 mg/dL (65-110); Sodium 139 mmol/L (137-145)
--- NOTE | 2022-02-01 09:36 | WPDMODSED ---
Moderate Sedation Note-Pt Data Patient Data Diagnosis: newly diagnosed cardiomyopathy Present Complaint: no complaints Procedure to be performed/Plan: left heart catheterization Allergies Allergy/AdvReac Type Severity Reaction Status Date / Time No Known Allergies Allergy Verified 01/31/22 14:25 Home Medications Medication Instructions Recorded Confirmed Type levothyroxine 50 mcg tablet 50 mcg PO DAILY 01/31/22 02/01/22 History metoprolol succinate 25 mg 25 mg PO DAILY 01/31/22 02/01/22 History tablet,extended release 24 hr sacubitril 24 mg-valsartan 26 mg 1 tablet PO BID 01/31/22 02/01/22 History tablet (Entresto) Current Medications: Active Medications Sodium Chloride (Normal Saline Iv) 500 mls @ 100 mls/hr IV CONT .Q5H JOANNA Sedation/Anesthesia: No previous sedation/anesthesia problems (including family history). [facility] Past Medical History Medical History Degenerative arthritis of right knee RLQ abdominal pain Surgical History Surgical History H/O knee surgery Metacarpal bone fracture (04/08/19) Social History Social History Smoking status: Never smoker Smoking end date: 05/28/84 Alcohol intake: current Drinks per week: 24 Substance use: former Substance use type: does not use and marijuana Living arrangements: with family Gender identity (if verbalized by the patient): Male Spiritual care concerns: No Mod Sed Physical Exam Physical Exam Pre Procedural Exam: Normal: Appearance, Neck, Throat, Airway, Lungs, Heart Size, Heart Rate, Heart Rhythm, Neuro Exam and Extremities Hours since solid foods: 12 Hours since liquid intake: 12 Mallampati Classification: class II Internal Medicine - PN: Obj Da Vital Signs Vital Signs: Vital Signs - 24 hr 02/01/22 08:41 Temperature 36.3 C L Pulse Rate 65 Respiratory Rate 18 Blood Pressure 137/91 H Pulse Oximetry 97 Oxygen Delivery Room Air Meds/Results Medications: Active Medications Generic Name Dose Route Start Last Admin Trade Name Freq PRN Reason Stop Dose Admin Sodium Chloride 500 mls @ 100 mls/hr 01/31/22 08:30 Normal Saline Iv IV CONT .Q5H JOANNA Labs CBC & Chem 7: 09/07/22 08:53 02/01/22 08:53 Labs: Laboratory Results - last 24 hr 02/01/22 02/01/22 08:53 08:53 WBC 6.2 RBC 4.96 Hgb 15.3 Hct 45.2 MCV 91.1 MCH 30.8 MCHC 33.8 RDW 13.6 Plt Count 282 MPV 8.7 Immature Gran % (Auto) 0.2 Neut % (Auto) 76.3 H Lymph % (Auto) 13.8 L [place] % (Auto) 7.3 Eos % (Auto) 1.9 Baso % (Auto) 0.5 Lymph # (Auto) 0.85 L [place] # (Auto) 0.5 Eos # (Auto) 0.1 Baso # (Auto) 0.0 Abs Immat Gran (auto) 0.01 Absolute Neuts (auto) 4.7 Absolute Nucleated RBC 0.0 Nucleated RBC % 0.0 Sodium 139 Potassium 4.0 Chloride 106 Carbon Dioxide 23 Anion Gap 10 BUN 17 Creatinine 1.10 Estim Creat Clear Calc 75 Estimated GFR > 60 Glucose 105 Calcium 8.6 ASA Classification/Sedation ASA Classification/Sedation ASA Class: II Emergent: No Risks: Risks, benefits and alternatives explained and patient/family accepted plan for sedation. Patient re-evaluated immediately prior to sedation.
--- NOTE | 2022-02-01 10:01 | WPDCARDPROC ---
Cardiac Cath Procedure Note Date of procedure:: 02/01/22 Performing physician:: Favian Conley MD Indication:: cardiomyopathy Brief clinical history:: this is a 56-year-old patient recently found to have systolic left ventricular dysfunction. To rule out a basis to this the left heart catheterization has been recommended Procedure Procedure performed:: left ventriculogram coronary angiogram Angio-Seal to right femoral artery Sedation/Medication given:: fentanyl 50 mg Versed 2 mg case start time 9:45 a.m. case end time 9:59 a.m. sedation provided by Luis Suarez RN, trained observer Access site:: right femoral artery Estimated blood loss:: 20 cc Procedure note:: patient was brought to the cardiac catheterization lab in the postabsorptive state where the right femoral triangle was prepared and draped fashion. Anesthesia was provided with 1% lidocaine infiltrated locally. Using the modified Seldinger technique a 5 Nicaraguan vascular sheath was placed in the right common femoral artery. Left heart catheterization was then carried out. A 5 Nicaraguan angled pigtail catheter was used to perform a left ventriculogram in the COVARRUBIAS projection and to document left-sided hemodynamics and pullback pressures across the aortic valve. Following this the left coronary artery was engaged and injected using a standard 5 Nicaraguan FL4 catheter. The right coronary artery was then engaged and injected using a standard 5 [place]araguan JR4 catheter. The cineangiograms were reviewed and case was terminated. An angiogram was done of the femoral artery through the sheath and then a 6 [place]araguan Angio-Seal device was deployed at the puncture site with a good hemostatic result. 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 Findings:: Hemodynamics: Central aortic pressure is 132 over 78 left ventricle 132 for end-diastolic pressure 16 is gradient on pullback across the aortic valve. Left ventricle: The left ventricle is mildly enlarged. There is global hypocontractility noted with an estimated ejection fraction of 30%. The left main coronary artery is widely patent the left anterior descending is a large caliber artery extending down to around the apex the LAD provides a significant portion of the inferior wall extending down the Inferior wall as well. The LAD is smooth and angiographically normal in appearance circumflex is a large caliber vessel giving rise to the marginal branches. The circumflex system is and angiographically normal in appearance the right coronary artery is large caliber and dominant to the posterior circulation. The RPDA is relatively small as the LAD provides the inferior wall as described above. The RPL branches are smooth and angiographically unremarkable in appearance Conclusion:: 1. right coronary dominant circulation although with long LAD extending around the apex to the inferior wall as well. 2. No angiographic evidence of coronary artery disease 3. moderate left ventricular systolic dysfunction Favian Conley MD [facility]
--- NOTE | 2022-02-01 13:27 | SUR.PHASEII ---
D: Patients b/p 153/107. Pt denies headache and dizziness A: notified of pts b/p. Also asked for b/p meds. R: B/P not high enough to treat. aware of findings.
[2022-02-01 22:57] LABS: Magnesium 2.4 mg/dL (1.6-2.3)
== END 2022-02-01 13:15 | disposition home or self-care (01) ==
PROVIDERS: PCP Internal Medicine; Visit Provider Specialist
PROC: 4A023N7 Measurement of Cardiac Sampling and Pressure, Left Heart, Percutaneous Approach (ICD-10-PCS; CPT 93452; principal; 2022-02-01 10:00)
DX: I42.9 Cardiomyopathy, unspecified (principal); I11.0 Hypertensive heart disease with heart failure; I50.42 Chronic combined systolic (congestive) and diastolic (congestive) heart failure; G47.33 Obstructive sleep apnea (adult) (pediatric)
CPT/HCPCS: 36415; 80048; 83735; 85025; 93458; C1760; C1887; C1894; G0269; J1644; J2250; J3010; J7040

== ENCOUNTER 2022-08-28 10:09 | Outpatient (CLI) | payer BC, SELFPAY ==
[2022-08-28 10:40] LABS: Basophils Absolute Auto 0.02 K/mm3 (0.00-0.10); Basophils Percent Auto 0.1 % (0.0-1.0); Hematocrit 44.1 % (40.0-54.0); Hemoglobin 15.1 g/dL (14.0-18.0); Immature Granulocyte Absolute 0.09 K/mm3 (0.00-0.00); Immature Granulocyte Percent A 0.6 % (0.0-0.0); Lymphocytes Absolute Auto 0.66 K/mm3 (1.10-4.50); Lymphocytes Percent Auto 4.7 % (18.0-42.0); Mean Corpuscular HGB Conc 34.2 g/dL (32.0-36.0); Mean Corpuscular Hemoglobin 30.9 pg (27.0-31.0); Mean Corpuscular Volume 90.4 fL (78.0-102.0); Mean Platelet Volume 8.7 fl (8.7-11.0); Monocytes Absolute Auto 0.82 K/mm3 (0.10-0.90); Monocytes Percent Auto 5.8 % (2.0-11.0); Neutrophils Absolute Auto 12.6 K/mm3 (1.7-7.2); Neutrophils Percent Auto 88.8 % (50.0-70.0); Platelet Count Result 266 K/mm3 (150-420); Red Blood Count 4.88 M/mm3 (4.70-6.10); Red Cell Distribution Width 13.3 % (11.6-14.4); White Blood Count 14.2 K/mm3 (4.8-10.8)
[2022-08-28 11:20] LABS: Alanine Aminotransferase 44 U/L (16-63); Albumin Level 3.4 g/dL (3.4-5.0); Alkaline Phosphatase 60 U/L (46-116); Anion Gap 7 mmol/L (8-16); Aspartate Amino Transferase 29 U/L (15-37); Bilirubin,Total 1.4 mg/dL (0.00-1.00); Blood Urea Nitrogen 17 mg/dL (7-18); Calcium 8.8 mg/dL (8.5-10.1); Carbon Dioxide 28 mmol/L (21-32); Chloride 101 mmol/L (98-108); Estimated Glomerular Filt Rate 56; Glucose 147 mg/dL (70-99); NT Pro B Type Natriuretic Pept 211 pg/mL (0-125); Osmolality Calculated 286 mOsm/kg (285-295); Potassium 4.1 mmol/L (3.5-5.1); Sodium 136 mmol/L (136-145); Total Protein 7.3 g/dL (6.4-8.2)
[2022-08-28 11:25] LABS: Prostate Specific Antigen 7.6 ng/mL (< OR = 4.0)
== END 2022-08-28 10:10 | disposition home or self-care (01) ==
LOC: CHSLAB 10:10
PROVIDERS: PCP Internal Medicine; Visit Provider Internal Medicine
DX: N39.0 Urinary tract infection, site not specified (principal); I50.9 Heart failure, unspecified
CPT/HCPCS: 36415; 80053; 83880; 84153; 85025; 87040

== ENCOUNTER 2022-10-02 10:40 | Outpatient (CLI) | payer BC, SELFPAY ==
[2022-10-02 11:04] LABS: Basophils Absolute Auto 0.02 K/mm3 (0.00-0.10); Basophils Percent Auto 0.2 % (0.0-1.0); Hemoglobin 14.9 g/dL (14.0-18.0); Immature Granulocyte Absolute 0.08 K/mm3 (0.00-0.00); Immature Granulocyte Percent A 0.7 % (0.0-0.0); Lymphocytes Absolute Auto 0.84 K/mm3 (1.10-4.50); Lymphocytes Percent Auto 7.1 % (18.0-42.0); Mean Corpuscular HGB Conc 33.1 g/dL (32.0-36.0); Mean Corpuscular Volume 90.7 fL (78.0-102.0); Mean Platelet Volume 8.5 fl (8.7-11.0); Monocytes Percent Auto 9.3 % (2.0-11.0); Neutrophils Absolute Auto 9.8 K/mm3 (1.7-7.2); Neutrophils Percent Auto 82.7 % (50.0-70.0); Platelet Count Result 333 K/mm3 (150-420); Red Blood Count 4.96 M/mm3 (4.70-6.10); White Blood Count 11.9 K/mm3 (4.8-10.8)
[2022-10-02 11:46] LABS: Alanine Aminotransferase 44 U/L (16-63); Albumin Level 3.7 g/dL (3.4-5.0); Alkaline Phosphatase 79 U/L (46-116); Anion Gap 10 mmol/L (8-16); Aspartate Amino Transferase 38 U/L (15-37); Bilirubin,Total 0.8 mg/dL (0.00-1.00); Blood Urea Nitrogen 18 mg/dL (7-18); Calcium 8.8 mg/dL (8.5-10.1); Carbon Dioxide 25 mmol/L (21-32); Chloride 100 mmol/L (98-108); Estimated Glomerular Filt Rate 55; Glucose 112 mg/dL (70-99); NT Pro B Type Natriuretic Pept 287 pg/mL (0-125); Osmolality Calculated 282 mOsm/kg (285-295); Potassium 4.6 mmol/L (3.5-5.1); Prostate Specific Antigen 2.8 ng/mL (< OR = 4.0); Sodium 135 mmol/L (136-145); Total Protein 7.1 g/dL (6.4-8.2)
== END 2022-10-02 10:41 | disposition home or self-care (01) ==
LOC: CHSLAB 10:43
PROVIDERS: PCP Internal Medicine; Visit Provider Internal Medicine
DX: N41.0 Acute prostatitis (principal); I10 Essential (primary) hypertension; I50.22 Chronic systolic (congestive) heart failure
CPT/HCPCS: 36415; 80053; 83880; 84153; 85025; 87040

== ENCOUNTER 2024-07-02 14:06 | Outpatient (CLI) | payer BC, SELFPAY ==
--- NOTE | ~2024-07-02 | XR_ITS ---
Right Knee Technique: AP, lateral, and sunrise views were obtained. Clinical History: Pain Findings: No fracture or dislocation is seen. There is medial compartment narrowing. There is minimal tricompartmental osteophyte formation. There is a 1 cm probable loose body posterior to the knee. Po ssible additional loose bodies the central aspect of the joint. Soft tissues are unremarkable. No dann nt effusion is seen. Impression: Mild to moderate tricompartmental degenerative change, as detailed above. Probable 1 cm loose body posterior to the knee. Questionable additional loose bodies in the central a spect of the joint. Reviewed, dictated and finalized at location M. 8TH GRADE MATHEMATICS TEACHER Impression: Mild to moderate tricompartmental degenerative change, as detailed above. Probable 1 cm loose body posterior to the knee. Questionable additional loose b odies in the central aspect of the joint.
--- OUTSIDE RECORDS SUMMARY | 2024-07-02 15:03 | XMS_ITS | Referral Summary ---
Author Organization [facility] C Address [address] [place] [address] Care Team Providers Care Frameman Name Role Phone Kaila Manzo MD Primary Care Provider [phone] Encounters Date Type Department Care Team Description 04/10/2024 Telephone [facility] Medical [facility] Cardiology [address] [place] [phone] Henry Barraza MD bp readings 04/01/2024 8:30 AM SEWING TEACHER Office Visit [facility] Cardiology [address] [place] [address] Nikky Lozano NP Nonischemic cardiomyopathy (CMS/HCC) (HCC); Essential hypertension; Low blood pressure reading; Lipid screening from Last 3 Months Allergies No known active allergies Medications levothyroxine (SYNTHROID) 50 mcg tablet Take 1 tablet (50 mcg total) by mouth adoption specialist before breakfast Active tamsulosin (FLOMAX) 0.4 mg extended release capsule 10/03/19 23 Active Entresto 49-51 mg tabletIndications :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) (HCC) TAKE ONE TABLET BY MOUTH TWICE A DAY 60 tablet 11 10/23/19 24 Active spironolactone (ALDACTONE) 50 mg tabletIndications :Nonischemic cardiomyopathy (CMS/HCC) (HCC),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) (HCC) TAKE ONE TABLET BY MOUTH DAILY 90 tablet 2 04/15/20 24 Active metoprolol XL (TOPROL-XL) 100 mg 24 hr tabletIndications :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) (HCC),Essential hypertension,Lalitha schemic cardiomyopathy (CMS/HCC) (HCC) TAKE ONE TABLET BY MOUTH DAILY 90 tablet 1 06/16/19 25 Active metoprolol XL (TOPROL-XL) 100 mg 24 hr tabletIndications :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) (HCC),Essential hypertension,Lalitha schemic cardiomyopathy (CMS/HCC) (HCC) TAKE ONE TABLET BY MOUTH DAILY 90 tablet 1 12/21/19 24 025 Discontinued Active Problems Problem Noted Date Diagnosed Date CONSUELO (obstructive sleep apnea) 07/18/2022 Nonischemic cardiomyopathy (CMS/HCC) 01/20/2022 Essential hypertension 01/20/2022 Lipid screening 01/20/2022 Chronic combined systolic an d diastolic heart failure (CMS/HCC) 01/20/2022 Social History Tobacco Use Types Packs/Day Years Used Date Smoking Tobacco: Never Passive Smoke Exposure: Never Smokeless Tobacco: Never Tobacco Cessation:Counseling Given: Not Answered Sex and Gender Information Value Date Recorded Sex Assigned at Not on file Legal Sex Male 12:32 AM SEWING TEACHER Gender Identity Not on file Sexual Orientation Not on file Last Filed Vital Signs Vital Sign Reading Time Taken Comments Blood Pressure 90/56 04/01/2024 8:30 AM SEWING TEACHER Pulse 82 04/01/2024 8:30 AM SEWING TEACHER Temperature - - Respiratory Rate 15 05/26/2022 8:04 AM SEWING TEACHER Oxygen Saturation 94% 04/01/2024 8:30 AM SEWING TEACHER Inhaled Oxygen Concentration - - Weight 91.6 kg (202 lb) 04/01/2024 8:30 AM SEWING TEACHER Height 185.4 cm (6' 1 ) 04/01/2024 8:30 AM SEWING TEACHER Body Mass Index 26.65 04/01/2024 8:30 AM SEWING TEACHER Plan of Treatment Not on file Procedures Procedure Name Priority Date/Time Associated Diagnosis Comments POCT LIPID PANEL Routine 04/01/2024 8:36 AM SEWING TEACHER Lipid screening from Last 3 Months Results * POCT lipid panel (04/01/2024 8:36 AM SEWING TEACHER) Cholesterol, POC 167 mg/dL HDL, POC 41 mg/dL Triglycerides, POC 96 mg/dL LDL Cholesterol POC 107 mg/dL Chol/HDL Ratio, POC 2.6 Non-HDL Cholesterol, POC 126 mg/dL Cholesterol Total, POC 167 mg/dL Capillary blood 04/01/2024 8 :36 AM SEWING TEACHER Nikky Lozano NP POINT OF CARE TEST ORDERA BLES Final Result from Last 3 Months Insurance [employer] ACCESS CHOICE [employer] ACCESS CHOICE [facility] ACCESS CHOICE Care Teams Frameman Relationship Specialty Start Date End Date Kaila Manzo MD [address] [place] [address] PCP - General Internal Medicine 02/09/21
--- OUTSIDE RECORDS SUMMARY | 2024-07-02 15:03 | XMS_ITS | Clinical Summary ---
Author Organization [facility] C Address [address] [place] [address] Care Team Providers Care Color Control Operator Name Role Phone Kaila Manzo MD Primary Care Provider + [phone] Allergies No known active allergies Medications levothyroxine (SYNTHROID) 50 mcg tablet Take 1 tablet (50 mcg total) by mouth early childhood assistant before breakfast Active tamsulosin (FLOMAX) 0.4 mg [...] an d diastolic heart failure (CMS/HCC) 01/20/2022 Encounters Date Type Department Care Team Description 04/10/2024 Telephone [facility] Cardiology [address] [place] [phone] Henry Barraza MD bp readings 04/01/2024 8:30 AM SALES PORTER Office Visit [facility] Medical [facility] Cardiology [address] [place] [address] Nikky Lozano NP Nonischemic cardiomyopathy (CMS/HCC) ([facility]); Essential hypertension; Low blood pressure reading; Lipid screening from Last 3 Months Medical History Medical History Date Comments Hypertension Family History Medical History Relation Name Comments No Known Problems Brother Heart failure Father No Known Problems Mother No Known Problems Sister Relation Name Status Comments Brother Alive Father Mother Alive Sister Alive Social History Tobacco Use Types Packs/Day Years Used Date Smoking Tobacco: Never Passive Smoke Exposure: Never Smokeless Tobacco: Never Tobacco Cessation:Counseling Given: Not Answered Sex and Gender Information Value Date Recorded Sex Assigned at Not on file Legal Sex Male 12:32 AM SALES PORTER Gender Identity Not on file Sexual Orientation Not on file Obstetrics History Last Filed Vital Signs Vital Sign Reading Time Taken Comments Blood Pressure 90/56 04/01/2024 8:30 AM SALES PORTER Pulse 82 04/01/2024 8:30 AM SALES PORTER Temperature - - Respiratory Rate 15 05/26/2022 8:04 AM SALES PORTER Oxygen Saturation 94% 04/01/2024 8:30 AM SALES PORTER Inhaled Oxygen Concentration - - Weight 91.6 kg (202 lb) 04/01/2024 8:30 AM SALES PORTER Height 185.4 cm (6' 1 ) 04/01/2024 8:30 AM SALES PORTER Body Mass Index 26.65 04/01/2024 8:30 AM SALES PORTER Plan of Treatment Health Maintenance Due Date Last Done Comments Colon Cancer Screening-Colonoscopy 1965 Depression Screening 1965 Hepatitis C Screening 1965 Prostate Cancer Screening-PSA 1964 Pneumococcal vaccine <65 (1 of 2 - PCV) 1970 Hepatitis B Screening 1982 Regular Well Visit/Exam 18-64 1982 Zoster Vaccine (1 of 2) 2014 DTaP/Tdap/Td Vaccine (2 - Td or Tdap) 11/05/202103/2012 Influenza Vaccine (#1) 2024 Procedures Procedure Name Priority Date/Time Associated Diagnosis Comments POCT LIPID PANEL Routine 04/01/2024 8:36 AM SALES PORTER Lipid screening from Last 3 Months Results * POCT lipid panel (04/01/2024 8:36 AM SALES PORTER) Cholesterol, POC 167 mg/dL HDL, POC 41 mg/dL Triglycerides, POC 96 mg/dL LDL Cholesterol POC 107 mg/dL Chol/HDL Ratio, POC 2.6 Non-HDL Cholesterol, POC 126 mg/dL Cholesterol Total, POC 167 mg/dL Capillary blood 04/01/2024 8 :36 AM SALES PORTER Nikky Lozano NP POINT OF CARE TEST ORDERA BLES Final Result from Last 3 Months Insurance [facility] ACCESS CHOICE ANTHEM ACCESS CHOICE ANTHEM ACCESS CHOICE Care Teams Color Control Operator Relationship Specialty Start Date End Date Kaila Manzo MD [address] [place] [address] PCP - General Internal Medicine 02/09/21
== END 2024-07-02 14:07 | disposition home or self-care (01) ==
PROVIDERS: PCP Internal Medicine; Visit Provider Internal Medicine
DX: M25.561 Pain in right knee (principal)
CPT/HCPCS: 73562

== ENCOUNTER 2024-07-04 08:54 | Outpatient (RCR) | payer BC, SELFPAY ==
--- NOTE | 2024-07-04 10:04 | OPREHPOC ---
Outpatient Therapy Plan of Care This is a Multidisciplinary Plan of Care that may contain components documented by all disciplines (PT, OT, and ST.) PT Problem 1 PT Problem #1 Knowledge Deficit PT Goal 1 Goal / Goal Update Independent with HEP Target Visit 2 PT Problem 2 PT Problem #2 Pain PT Goal 1 Goal / Goal Update Pt to report no more than 4/10 pain in the L shoulder with reaching. Pt to report no more than 4/10 pain/soreness in the R knee when standing/walking for more than 30 minutes. Target Visit 12 PT Problem 3 PT Problem #3 Impaired Range of Motion PT Goal 1 Goal / Goal Update Pt to reach 175 degrees active L shoulder flexion. Pt to reach 160 degrees active L shoulder abduction. Pt to be able to reach behind his back to T9 level to be able to wash his back. Target Visit 12 PT Problem 4 PT Problem #4 Impaired Strength PT Goal 1 Goal / Goal Update Pt to improve gross L shoulder strength to 5/5 to improved mechanics and dynamic stability of the shoulder when performing functional tasks. Pt to improve R knee flexion/extension strength to 5/5 for improved ability to perform stairs and prolonged standing/walking at work. Target Visit 12 PT Problem 5 PT Problem #5 Impaired Functional Mobility PT Goal 1 Goal / Goal Update Pt to improve QuickDASH score to less than 20% disability for improved functional use of the L shoulder. Pt to improve LEFS score to less than 20% disability for improved ability to perform ADLs and work activities. Target Visit 12
--- NOTE | 2024-07-04 10:04 | PTOPEVAL1 ---
Assessment and note entered by Kayley Gunn, PT Evaluation Information Assessment Status Evaluation Diagnosis L shoulder pain, R knee pain ICD-10 Condition Codes (PT) Pain in left shoulder M25.512,Pain in right knee M25.561,Weakness R53.1 Onset 12/27/23 Subjective Information Pt reports L shoulder pain began on approx. 3 months ago. Pain came on insidiously, pt reports he's had a rotator cuff injury on the R shoulder and his doctor thinks he now has a L rotator cuff injury. 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 Pain is located within the shoulder joint and is intermittent in nature based on movement. Pt reports R knee pain began 6 months ago and has progressively gotten worse. Pt reports he walks alot and by the end of the work day finds himself limping. Stairs and prolonged walking/standing aggravate the pain. Pt got an x-ray yesterday which showed degeneration of the R knee. Reported Pain Level Pain Score 0,0: Self Report Assessment PT Clinical Summary Mr. Joseph is a 58 year old male who presents to physical therapy with L shoulder pain and R knee pain. He demonstrates L shoulder pain with reaching laterally, closing a car door, reaching behind his back and putting on a coat. Pain is intermittent in nature but when it occurs it is excruciating but subsides with rest. R knee pain is aching and occurs with prolonged walking and standing. He notes mild interference at work when lifting and walking. He will benefit from skilled PT intervention to improve on these deficits and return to prior level of function. Plan of Care Interventions Electrical Stimulation,Gait Training,Hot Pack/Cold Pack,Intermittent Compression Pump,Manual Therapy ,Neuro Re-education,Patient/Caregiver Education, Therapeutic Activities,Therapeutic Exercise,Self- Care/Home Management PT Services Indicated Yes Treatment Frequency and 2x/week for 12 visits Duration These treatments will address the objective and functional deficits as defined above. The patient will be advanced safely and appropriately in order for the patient to progress towards his/her prior level of function. Additional exercises will be introduced and as well as a comprehensive home exercise program upon discharge, if needed, ?to ensure carryover of functional gains achieved in the clinic. This treatment plan has been reviewed and agreement upon by the patient.
--- NOTE | 2024-08-14 15:25 | OPREHPOC ---
Outpatient Therapy Plan of Care This is a Multidisciplinary Plan of Care that may contain components documented by all disciplines (PT, OT, and ST.) PT Problem 1 PT Problem #1 Knowledge Deficit PT Goal 1 Goal / Goal Update Independent with HEP Target Visit 2 Progress Met PT Problem 2 PT Problem #2 Pain PT Goal 1 Goal / Goal Update Pt to report no more than 4/10 pain in the L shoulder with reaching. Pt to report no more than 4/10 pain/soreness in the R knee when standing/walking for more than 30 minutes. Target Visit 12 Progress Not Met PT Problem 3 PT Problem #3 Impaired Range of Motion PT Goal 1 Goal / Goal Update Pt to reach 175 degrees active L shoulder flexion. Pt to reach 160 degrees active L shoulder abduction. Pt to be able to reach behind his back to T9 level to be able to wash his back. Target Visit 12 Progress Not Met PT Problem 4 PT Problem #4 Impaired Strength PT Goal 1 Goal / Goal Update Pt to improve gross L shoulder strength to 5/5 to improved mechanics and dynamic stability of the shoulder when performing functional tasks. Pt to improve R knee flexion/extension strength to 5/5 for improved ability to perform stairs and prolonged standing/walking at work. Target Visit 12 Progress Not Met PT Problem 5 PT Problem #5 Impaired Functional Mobility PT Goal 1 Goal / Goal Update Pt to improve QuickDASH score to less than 20% disability for improved functional use of the L shoulder. Pt to improve LEFS score to less than 20% disability for improved ability to perform ADLs and work activities. Target Visit 12 Progress Not Met
--- NOTE | 2024-08-14 15:25 | PTOPDC ---
Assessment and note entered by Kayley Gunn, PT Evaluation Information Assessment Status Discharge Diagnosis L shoulder pain, R knee pain ICD-10 Condition Codes (PT) Pain in left shoulder M25.512,Pain in right knee M25.561,Weakness R53.1 Onset 12/27/23 Subjective Information Mr. Ortega reports minimal change in L shoulder pain since beginning therapy. He still notes R knee pain but it's tolerable and he states that he 'll just live with it. However he still continues to have pain in the L shoulder that is aggravated by reaching behind his back to put on a coat and reaching behind his head to wash his hair. He does feel looser after a therapy visit but overall feels like his range of motion and strength are relatively unchanged. Reported Pain Level Pain Score 2,1: Self Report Assessment PT Clinical Summary Mr. Joseph has attended 10 total skilled PT visits for R knee pain and L shoulder pain. He has been independent in performing his HEP however his R knee strength is unchanged and his L shoulder has weakened further since starting therapy. He has made slight improvements in L shoulder AROM but still lacks functional use of the arm. Due to worsening strength and lack of progress toward goals, it is recommended that Mr. Jsoeph return to his doctor for further assessment and/or imaging of the L shoulder. Plan of Care PT Services Indicated No
== END 2024-08-14 15:36 | disposition home or self-care (01) ==
LOC: CHSPT 08:54
PROVIDERS: PCP Internal Medicine; Visit Provider Internal Medicine
DX: M25.512 Pain in left shoulder (principal)
CPT/HCPCS: 97110; 97112; 97140; 97161; 97530

== ENCOUNTER 2024-07-05 07:19 | Outpatient (CLI) | payer BC, SELFPAY ==
--- NOTE | ~2024-07-05 | MR_ITS ---
EXAMINATION: MR knee RT wo con DATE: 07/05/2024 08:14 INDICATION: Rt. knee pain x6 months, NKI TECHNIQUE: Magnetic resonance imaging (MRI) of the right knee was performed without intravenous contr ast. Sequences included axial PD-weighted FS FSE, coronal PD-weighted FSE and PD-weighted FS FSE, sag ittal PD-weighted FSE, and sagittal T2-weighted FS FSE. COMPARISON: X-ray right knee 07/02/2024 FINDINGS: Medial compartment: Apical tear of the meniscal body. Oblique tear of the junction of the posterior horn and body extendi ng to the superior surface, with meniscal fraying. Large area of full-thickness cartilage loss on the MFC, with undermining of cartilage around the periphery. Lateral compartment: Mild partial-thickness signal abnormality in the cartilage. Meniscus intact. Patellofemoral compartment: Moderate diffuse cartilage thinning with multifocal near full-thickness cartilage defects. Retinacula intact. Ligaments and tendons: The ACL is torn. The PCL, MCL, and LCL are intact. Remaining flexor and extensor tendons are intact. Fluid: Moderate volume joint fluid. Small Palencia's cyst. Osseous/other: No suspicious focal or diffuse marrow signal. 1 cm ossified loose body in the anterior and central sonja int space. 7 mm calcified loose bodies in the central joint space. 12 mm calcified loose body in the Palencia's cyst. IMPRESSION: Oblique and apical tears of the medial meniscus. Complete ACL tear. Severe osteoarthritic changes in the medial compartment. Multiple loose bodies detailed above. Reviewed, dictated and finalized at location K. DENT CAREGIVER
--- OUTSIDE RECORDS SUMMARY | 2024-07-05 07:24 | XMS_ITS | Clinical Summary ---
Author Organization [facility] C Address [address] [place] [address] Care Team Providers Care Medical Device Sales Name Role Phone Kaila Manzo MD Primary Care Provider + [phone] Allergies No known active allergies Medications levothyroxine (SYNTHROID) 50 mcg tablet Take 1 tablet (50 mcg total) by mouth looper fixer before breakfast Active tamsulosin (FLOMAX) 0.4 mg [...] Type Department Care Team Description 04/10/2024 Telephone [facility] Cardiology [address] [place] [address] Henry Barraza MD bp readings from Last 3 Months Medical History Medical [...] on file Legal Sex Male 12:32 AM ENGINEERING CLERK Gender Identity Not on file Sexual Orientation Not on file Obstetrics History Last Filed Vital Signs Vital Sign Reading Time Taken Comments Blood Pressure 90/56 04/01/2024 8:30 AM ENGINEERING CLERK Pulse 82 04/01/2024 8:30 AM ENGINEERING CLERK Temperature - - Respiratory Rate 15 05/26/2022 8:04 AM ENGINEERING CLERK Oxygen Saturation 94% 04/01/2024 8:30 AM ENGINEERING CLERK Inhaled Oxygen Concentration - - Weight 91.6 kg (202 lb) 04/01/2024 8:30 AM ENGINEERING CLERK Height 185.4 cm (6' 1 ) 04/01/2024 8:30 AM ENGINEERING CLERK Body Mass Index 26.65 04/01/2024 8:30 AM ENGINEERING CLERK Plan of Treatment Health Maintenance Due Date Last Done Comments Colon Cancer Screening-Colonoscopy 1964 Depression Screening 1965 Hepatitis C Screening 1964 Prostate Cancer Screening-PSA 1964 Pneumococcal vaccine <65 (1 of 2 - PCV) 1970 Hepatitis B Screening 1982 Regular Well Visit/Exam 18-64 1982 Zoster Vaccine (1 of 2) 2014 DTaP/Tdap/Td Vaccine (2 - Td or Tdap) 11/05/202103/2012 Influenza Vaccine (#1) 2024 Insurance [employer] ACCESS CHOICE [employer] ACCESS CHOICE ANTHEM ACCESS CHOICE Care Teams Medical Device Sales Relationship Specialty Start Date End Date Kaila Manzo MD [address] [place] [address] PCP - General Internal Medicine 02/09/21
--- OUTSIDE RECORDS SUMMARY | 2024-07-05 07:24 | XMS_ITS | Referral Summary ---
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 before breakfast Active tamsulosin (FLOMAX) 0.4 mg [...] on file Legal Sex Male 12:32 AM BELLY PACKER Gender Identity Not on file Sexual Orientation Not on file Last Filed Vital Signs Vital Sign Reading Time Taken Comments Blood Pressure 90/56 04/01/2024 8:30 AM BELLY PACKER Pulse 82 04/01/2024 8:30 AM BELLY PACKER Temperature - - Respiratory Rate 15 05/26/2022 8:04 AM BELLY PACKER Oxygen Saturation 94% 04/01/2024 8:30 AM BELLY PACKER Inhaled Oxygen Concentration - - Weight 91.6 kg (202 lb) 04/01/2024 8:30 AM BELLY PACKER Height 185.4 cm (6' 1 ) 04/01/2024 8:30 AM BELLY PACKER Body Mass Index 26.65 04/01/2024 8:30 AM BELLY PACKER Plan of Treatment Not on file Insurance [facility] ACCESS CHOICE ANTHEM ACCESS CHOICE ANTHEM ACCESS CHOICE Care Teams Press Leader Relationship Specialty Start Date End Date Kaila Manzo MD [address] [id number] PCP - General Internal Medicine 02/09/21
== END 2024-07-05 07:20 | disposition home or self-care (01) ==
LOC: CHSIMG 07:22
PROVIDERS: PCP Internal Medicine; Visit Provider Internal Medicine
DX: M25.561 Pain in right knee (principal); S83.241A Other tear of medial meniscus, current injury, right knee, initial encounter; S83.31XA Tear of articular cartilage of right knee, current, initial encounter; M23.41 Loose body in knee, right knee
CPT/HCPCS: 73721

== ENCOUNTER 2024-09-18 07:49 | Outpatient (CLI) | payer BC, SELFPAY ==
--- NOTE | ~2024-09-18 | MR_ITS ---
MRI of the left shoulder Technique: Axial proton-density fat-sat images, coronal proton density fat-sat and T2 fat-sat images, and sagittal T1-weighted and T2 fat-sat images were acquired. Clinical History: Pain Findings: There is mild AC joint degenerative change. Coracoclavicular, coracoacromial, and coracohum eral ligament are intact. Supraspinatus and infraspinatus tendons demonstrate mild tendinosis without partial or full-thickness tear. Subscapularis tendon intact with minimal tendinosis. Tendon of the long head of biceps is inta ct. No labral tear evident. Inferior glenohumeral ligament is intact. There is no significant effusion or degenerative change of the glenohumeral joint. No fluid distention of the subacromial/subdeltoid bursa. No muscle atrophy or edema. Impression: Minimal rotator cuff tendinosis and mild degenerative change at the AC joint. Reviewed, dictated and finalized at [facility]. Impression: Minimal rotator cuff tendinosis and mild degenerative change at the AC joint.
--- OUTSIDE RECORDS SUMMARY | 2024-09-18 07:53 | XMS_ITS | Referral Summary ---
Author Organization [facility] C Address [address] [place] [address] Care Team Providers Care Automotive Technology Instructor Name Role Phone Kaila Manzo MD Primary Care Provider [phone] Allergies No known active allergies Medications levothyroxine (SYNTHROID) 50 mcg tablet Take 1 tablet (50 mcg total) by mouth automobile drivers before breakfast Active tamsulosin (FLOMAX) 0.4 mg extended release capsule 3 Active Entresto 49-51 mg tabletIndications: Chronic combined systolic and diastolic heart failure (HCC) TAKE ONE TABLET BY MOUTH TWICE A DAY 60 tablet 11 4 Active spironolactone (ALDACTONE) 50 mg tabletIndications: Nonischemic cardiomyopathy (HCC),Chronic combined systolic and diastolic heart failure (HCC) TAKE ONE TABLET BY MOUTH DAILY 90 tablet 2 4 Active metoprolol XL (TOPROL-XL) 100 mg 24 hr tabletIndications: Chronic combined systolic and diastolic heart failure (HCC),Essential hypertension,Nonis chemic cardiomyopathy (HCC) TAKE ONE TABLET BY MOUTH DAILY 90 tablet 1 5 Active Active Problems Problem Noted Date Diagnosed Date CONSUELO (obstructive sleep apnea) 07/18/2022 Nonischemic cardiomyopathy 01/20/2022 Essential hypertension 01/20/2022 Lipid screening 01/20/2022 Chronic combined systolic and diastolic heart fa ilure 01/20/2022 Social History Tobacco Use Types Packs/Day Years Used Date Smoking Tobacco: Never Passive Smoke Exposure: Never Smokeless Tobacco: Never Tobacco Cessation:Counseling Given: Not Answered Sex and Gender Information Value Date Recorded Sex Assigned at Not on file Legal Sex Male 12:32 AM RNP Gender Identity Not on file Sexual Orientation Not on file Last Filed Vital Signs Vital Sign Reading Time Taken Comments Blood Pressure 90/56 04/01/2024 8:30 AM RNP Pulse 82 04/01/2024 8:30 AM RNP Temperature - - Respiratory Rate 15 05/26/2022 8:04 AM RNP Oxygen Saturation 94% 04/01/2024 8:30 AM RNP Inhaled Oxygen Concentration - - Weight 91.6 kg (202 lb) 04/01/2024 8:30 AM RNP Height 185.4 cm (6' 1 ) 04/01/2024 8:30 AM RNP Body Mass Index 26.65 04/01/2024 8:30 AM RNP Plan of Treatment Not on file Insurance [employer] ACCESS CHOICE ANTHEM ACCESS CHOICE ANTH ACCESS CHOICE Care Teams Automotive Technology Instructor Relationship Specialty Start Date End Date Kaila Manzo MD [address] [place] [address] PCP - General Internal Medicine 02/09/21
--- OUTSIDE RECORDS SUMMARY | 2024-09-18 07:53 | XMS_ITS | Clinical Summary ---
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 Active tamsulosin (FLOMAX) 0.4 mg [...] systolic and diastolic heart fa ilure 01/20/2022 Medical History Medical History Date Comments Hypertension [...] on file Legal Sex Male 12:32 AM TELEVISION MECHANIC Gender Identity Not on file Sexual Orientation Not on file Obstetrics History Last Filed Vital Signs Vital Sign Reading Time Taken Comments Blood Pressure 90/56 04/01/2024 8:30 AM TELEVISION MECHANIC Pulse 82 04/01/2024 8:30 AM TELEVISION MECHANIC Temperature - - Respiratory Rate 15 05/26/2022 8:04 AM TELEVISION MECHANIC Oxygen Saturation 94% 04/01/2024 8:30 AM TELEVISION MECHANIC Inhaled Oxygen Concentration - - Weight 91.6 kg (202 lb) 04/01/2024 8:30 AM TELEVISION MECHANIC Height 185.4 cm (6' 1 ) 04/01/2024 8:30 AM TELEVISION MECHANIC Body Mass Index 26.65 04/01/2024 8:30 AM TELEVISION MECHANIC Plan of Treatment Health Maintenance Due Date Last Done Comments Colon Cancer Screening-Colonoscopy 1964 Depression Screening 1964 Hepatitis C Screening 1964 Prostate Cancer Screening-PSA 1964 Hepatitis B Screening 1982 Regular Well Visit/Exam 18-64 1982 Pneumococcal vaccine <65 (1 of 2 - PCV) 08/10/1983 Zoster Vaccine (1 of 2) 2014 DTaP/Tdap/Td Vaccine (2 - Td or Tdap) 11/05/202103/2012 Influenza Vaccine (#1) 2024 Insurance [facility] ACCESS CHOICE ANTHEM ACCESS CHOICE ANTHEM ACCESS CHOICE Care Teams Pasta Press Operator Relationship Specialty Start Date End Date Kaila Manzo MD [address] [place] [address] PCP - General Internal Medicine 02/09/21
== END 2024-09-18 07:50 | disposition home or self-care (01) ==
LOC: CHSIMG 07:50
PROVIDERS: PCP Internal Medicine; Visit Provider Internal Medicine
DX: M25.512 Pain in left shoulder (principal); M77.8 Other enthesopathies, not elsewhere classified
CPT/HCPCS: 73221

== ENCOUNTER 2025-05-12 07:35 | Outpatient (CLI) | payer BC, SELFPAY ==
--- OUTSIDE RECORDS SUMMARY | 2025-05-12 07:43 | XMS_ITS | Encounter Summary ---
Author Organization [facility] Healthcare Address [address] [place] [address] Care Team Providers Care Quality Director Name Role Phone Kaila Manzo MD Primary Care Provider [phone] Encounter Details Date Type Department Care Team (Late st Contact Info) Description 07/01/2024 Orders Only [facility] Health Information Management [address] [place] [id number] Scanning, Provider Social History Tobacco Use Types Packs/Day Years Used Date Smoking Tobacco: Never Passive Smoke Exposure: Never Smokeless Tobacco: Never Sex and Gender Information Value Date Recorded Sex Assigned at Not on file 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 Gender Identity Not on file Sexual Orientation Not on file documented as of this encounter Plan of Treatment Not on file documented as of this encounter Procedures Procedure Name Priority Date/Time Associated Diagnosis Comments SCAN - LABS 07/01/2024 documented in this encounter Results * SCAN - LABS (07/01/2024) us Provider Scanning Final Result documented in this encounter Visit Diagnoses Not on filedocumented in this encounter Care Teams Quality Director Relationship Specialty Start Date End Date Kaila Manzo MD [address] [place] [address] PCP - General Internal Medicine 02/09/21 documented as of this encounter
--- OUTSIDE RECORDS SUMMARY | 2025-05-12 07:43 | XMS_ITS | Clinical Summary ---
Author Organization [facility] C Address [address] [address] Care Team Providers Care Sr. 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 Active tamsulosin (FLOMAX) 0.4 mg extended release capsule 3 Active spironolactone (ALDACTONE) 25 mg tabletIndications: Nonischemic cardiomyopathy (HCC) Take 1 tablet (25 mg total) by mouth daily 90 tablet 3 5 10/11/19 Active metoprolol XL (TOPROL-XL) 100 mg 24 hr tabletIndications: Chronic combined systolic and diastolic heart failure (HCC),Essential hypertension,Nonis chemic cardiomyopathy (HCC) TAKE ONE TABLET BY MOUTH DAILY 90 tablet 3 5 Active Entresto 49-51 mg tabletIndications: Chronic combined systolic and diastolic heart failure (HCC) TAKE ONE TABLET BY MOUTH TWICE A DAY 60 tablet 11 5 Active Active Problems Problem Noted Date Diagnosed Date Preop cardiovascular exam 04/08/2025 CONSUELO (obstructive sleep apnea) 07/18/2022 Nonischemic cardiomyopathy 01/20/2022 Essential hypertension 01/20/2022 Lipid screening 01/20/2022 Chronic combined systolic and diastolic heart fa ilure 01/20/2022 Encounters Date Type Department Care Team Description 04/08/2025 9:30 AM PROJECTION WELDING MACHINE OPERATOR Office Visit [facility] Medical Group Cardiology [employer] [facility] [address] [place] [address] Henry Barraza MD Chronic combined systolic and diastolic heart failure (HCC) (Primary Dx); Nonischemic cardiomyopathy (HCC); CONSUELO (obstructive sleep apnea); Essential hypertension; Preop cardiovascular exam from Last 3 Months Medical History Medical [...] on file Legal Sex Male 12:32 AM PROJECTION WELDING MACHINE OPERATOR Gender Identity Not on file Sexual Orientation Not on file Last Filed Vital Signs Vital Sign Reading Time Taken Comments Blood Pressure 92/78 04/08/2025 9:14 AM PROJECTION WELDING MACHINE OPERATOR Pulse 81 04/08/2025 9:14 AM PROJECTION WELDING MACHINE OPERATOR Temperature - - Respiratory Rate 91 04/08/2025 9:14 AM PROJECTION WELDING MACHINE OPERATOR Oxygen Saturation 94% 10/10/2024 3:05 PM CDT Inhaled Oxygen Concentration - - Weight 95.3 kg (210 lb) 04/08/2025 9:14 AM PROJECTION WELDING MACHINE OPERATOR Height 185.4 cm (6' 1) 04/08/2025 9:14 AM PROJECTION WELDING MACHINE OPERATOR Body Mass Index 27.71 04/08/2025 9:14 AM PROJECTION WELDING MACHINE OPERATOR Plan of Treatment Health Maintenance Due Date Last Done Comments Colon Cancer Screening-Colonoscopy 1964 Depression Screening 1964 Hepatitis C Screening 1964 Prostate Cancer Screening-PSA 1964 Hepatitis B Screening 1982 Regular Well Visit/Exam 18-64 1982 Pneumococcal vaccine <65 (1 of 2 - PCV) 08/10/1983 Zoster Vaccine (1 of 2) 2014 DTaP/Tdap/Td Vaccine (2 - Td or Tdap) 11/05/202103/2012 Influenza Vaccine (#1) 2025 Procedures Procedure Name Priority Date/Time Associated Diagnosis Comments ELECTROCARDIOGRAM REPORT Routine 025 9:14 AM PROJECTION WELDING MACHINE OPERATOR Chronic combined systolic and diastolic heart failure (HCC) from Last 3 Months Results * Electrocardiogram Report (04/08/2025 9:14 AM PROJECTION WELDING MACHINE OPERATOR) us Henry Barraza MD ECG ORDERABLES Edited Re sult - Final from Last 3 Months Insurance [employer] ACCESS CHOICE [employer] ACCESS CHOICE ANTH ACCESS CHOICE Care Teams Sr. Director Product Management Relationship Specialty Start Date End Date Kaila Manzo MD [address] [place] [address] PCP - General Internal Medicine 02/09/21
--- NOTE | 2025-05-12 08:25 | ECG_ITS ---
Test Date: 2025-05-12 08:36:09 Measurements Intervals [place] Rate: 63 P: 41 UT: 182 QRS: -44 QRSD: 100 T: 24 QT: 401 QTc: 412 Interpretive Statements SINUS RHYTHM LEFT AXIS DEVIATION ANTEROLATERAL INFARCT, AGE INDETERMINATE BASELINE ARTIFACT- I, III, AVR, AVL, AVF, V5-V6 ABNORMAL ECG No previous ECG available for comparison Electronically Signed On 05-12-2025 08:42:02 ELECTRONIC MAINTENANCE SUPERVISOR by Rich Onofre D.O.
[2025-05-12 08:49] LABS: Hematocrit 48.7 % (42.0-52.0); Hemoglobin 16.5 g/dL (14.0-18.0); Immature Granulocyte Percent A 0.8 % (0-0.5); Lymphocytes Absolute Auto 1.62 K/mm3 (0.9-3.2); Mean Corpuscular HGB Conc 33.9 g/dl (32-36); Mean Corpuscular Hemoglobin 31.0 pg (26-34); Mean Corpuscular Volume 91.4 fl (80-100); Nucleated Red Blood Cells Absolute Auto 0.000 K/mm3 (0.0-0.012); Nucleated Red Blood Cells Perc 0.0 % (0.0-0.2); Platelet Count Result 307 k/mm3 (150-375); Red Blood Count 5.33 M/mm3 (4.6-6.20); White Blood Count 6.6 K/mm3 (4.5-10.0)
[2025-05-12 09:25] LABS: Albumin Level 4.2 g/dL (3.5-5.1)
[2025-05-12 10:02] LABS: Hemoglobin A1C 5.7 % (<5.7)
== END 2025-05-12 07:36 | disposition home or self-care (01) ==
LOC: ANHSURGERY 07:41
PROVIDERS: PCP Internal Medicine; Visit Provider Orthopaedic Surgery
DX: M17.0 Bilateral primary osteoarthritis of knee (principal); Z01.818 Encounter for other preprocedural examination; R94.31 Abnormal electrocardiogram [ECG] [EKG]
CPT/HCPCS: 80307; 82040; 83036; 85025; 87081; 87147; 87186; 93005

== ENCOUNTER 2025-05-13 13:54 | Outpatient (CLI) | payer BC, SELFPAY ==
[2025-05-13 14:22] LABS: INR 1.0; Partial Thromboplastin Time 27.1 Seconds (22.3-36.8); Prothrombin Time 13.1 Seconds (11.1-14.7)
[2025-05-13 14:40] LABS: Alanine Aminotransferase 23 U/L (6-50); Albumin Level 4.0 g/dL (3.5-5.1); Alkaline Phosphatase 42 U/L (38-126); Anion Gap 5 mmol/L (4-12); Aspartate Amino Transferase 22 U/L (17-59); Bilirubin,Total 0.6 mg/dL (0.2-1.3); Blood Urea Nitrogen 24 mg/dL (9-20); Calcium 9.0 mg/dL (8.4-10.2); Carbon Dioxide 28 mmol/L (22-30); Chloride 105 mmol/L (98-107); Estimated Glomerular Filt Rate > 60; Glucose 115 mg/dL (65-110); Potassium 4.0 mmol/L (3.4-5.0); Sodium 138 mmol/L (137-145); Total Protein 6.9 g/dL (6.3-8.2)
--- OUTSIDE RECORDS SUMMARY | 2025-05-13 16:26 | XMS_ITS | Clinical Summary ---
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 Active tamsulosin (FLOMAX) 0.4 mg [...] Encounters Date Type Department Care Team Description 05/13/2025 Telephone [facility] Medical Group Cardiology [address] [place] [address] Henry Barraza MD 04/08/2025 9:30 AM CORE CARRIER Office Visit [facility] Medical Group Cardiology [address], [place] [address] eHnry Barraza MD Chronic combined systolic and diastolic [...] on file Legal Sex Male 12:32 AM CORE CARRIER Gender Identity Not on file Sexual Orientation Not on file Last Filed Vital Signs Vital Sign Reading Time Taken Comments Blood Pressure 92/78 04/08/2025 9:14 AM CORE CARRIER Pulse 81 04/08/2025 9:14 AM CORE CARRIER Temperature - - Respiratory Rate 91 04/08/2025 9:14 AM CORE CARRIER Oxygen Saturation 94% 10/10/2024 3:05 PM CDT Inhaled Oxygen Concentration - - Weight 95.3 kg (210 lb) 04/08/2025 9:14 AM CORE CARRIER Height 185.4 cm (6' 1) 04/08/2025 9:14 AM CORE CARRIER Body Mass Index 27.71 04/08/2025 9:14 AM CORE CARRIER Plan of Treatment Health Maintenance Due Date [...] Comments ELECTROCARDIOGRAM REPORT Routine 025 9:14 AM CORE CARRIER Chronic combined systolic and diastolic heart failure (HCC) from Last 3 Months Results * Electrocardiogram Report (04/08/2025 9:14 AM CORE CARRIER) us Henry Barraza MD ECG ORDERABLES Edited Re sult - Final from Last 3 Months Insurance [facility] ACCESS CHOICE [facility] ACCESS CHOICE ANTHEM ACCESS CHOICE Care Teams Reconciling Clerk Relationship Specialty Start Date End Date Kaila Manzo MD [address] [place] [address] PCP - General Internal Medicine 02/09/21
--- OUTSIDE RECORDS SUMMARY | 2025-05-13 16:26 | XMS_ITS | Encounter Summary ---
Author Organization [facility] Healthcare Address [address] [place] [address] Care Team Providers Care Information Coordinator Name Role Phone Kaila Manzo MD Primary Care Provider [phone] Encounter Details Date Type Department Care Team (Late st Contact Info) Description 05/13/2025 Telephone [facility] Medical Group Cardiology [address] [place] [address] Henry Barraza MD [address] [facility] [address] [place] [address] Social History Tobacco Use Types Packs/Day Years Used Date Smoking Tobacco: Never Passive Smoke Exposure: Never Smokeless Tobacco: Never Sex and Gender Information Value Date Recorded Sex Assigned at Not on file Legal Sex Male 12:32 AM WAD BLANKING PRESS ADJUSTER Gender Identity Not on file Sexual Orientation Not on file documented as of this encounter Miscellaneous Notes * Telephone Encounter - Cheryl Quiñones RN - 05/13/2025 2:31 PM WAD BLANKING PRESS ADJUSTER Forwarded to [facility]: Spoke to Franci at Dr Monge's office, pt is having a Right Total Knee on 06/05 and they need to know if there is any contraindication to pt getting a 1x dose of Toradol and then being on Celebrex 100 mg daily x 6 wks post op? BLANKING PRESS ADJUSTER documented in this encounter Plan of Treatment Not on file documented as of this encounter Visit Diagnoses Not on filedocumented in this encounter Care Teams Information Coordinator Relationship Specialty Start Date End Date Kaila Manzo MD [address] [place] [address] PCP - General Internal Medicine 02/09/21 documented as of this encounter
--- OUTSIDE RECORDS SUMMARY | 2025-05-13 16:26 | XMS_ITS | Encounter Summary ---
Author Organization [facility] Healthcare Address [address] [place] [address] Care Team Providers Care Concessions Manager Name Role Phone Kaila Manzo MD Primary Care Provider [phone] Encounter Details Date Type Department Care Team (Late st Contact Info) Description 07/01/2024 Orders Only [facility] Health Information Management [address] [place] [address] Scanning, Provider Social History Tobacco Use Types Packs/Day Years Used Date Smoking Tobacco: Never Passive Smoke Exposure: Never Smokeless Tobacco: Never Sex and Gender Information Value Date Recorded Sex Assigned at Not on file Legal Sex Male 12:32 AM PROTECTION CONSULTANT Gender Identity Not on file Sexual Orientation [...] on filedocumented in this encounter Care Teams Concessions Manager Relationship Specialty Start Date End Date Kaila Manzo MD [address] [place] [address] PCP - General Internal Medicine 02/09/21 documented as of this encounter
== END 2025-05-13 13:55 | disposition home or self-care (01) ==
LOC: ANHSURGERY 13:55
PROVIDERS: PCP Internal Medicine; Visit Provider Orthopaedic Surgery
DX: M17.0 Bilateral primary osteoarthritis of knee (principal); Z01.818 Encounter for other preprocedural examination
CPT/HCPCS: 36415; 80053; 85610; 85730